=== PATIENT | female | born 1980 | race Caucasian/White ===

== ENCOUNTER → 2024-09-25 13:09 | Outpatient (BNVA) | payer OTHER, SELFPAY | PROVIDERS: Visit Provider Physician Assistant Medical | DX: M23.8X2 Other internal derangements of left knee (principal); S83.92XA Sprain of unspecified site of left knee, initial encounter; S39.011A Strain of muscle, fascia and tendon of abdomen, initial encounter; S39.012A Strain of muscle, fascia and tendon of lower back, initial encounter; X50.1XXA Overexertion from prolonged static or awkward postures, initial encounter | CPT/HCPCS: 73502; 73564; 99204 ==

== ENCOUNTER → 2024-09-28 13:30 | Outpatient (BNVA) | payer OTHER, SELFPAY | PROVIDERS: Visit Provider Physician Assistant Medical | DX: M23.92 Unspecified internal derangement of left knee (principal); S39.011A Strain of muscle, fascia and tendon of abdomen, initial encounter; S39.012A Strain of muscle, fascia and tendon of lower back, initial encounter; X50.1XXA Overexertion from prolonged static or awkward postures, initial encounter; M54.16 Radiculopathy, lumbar region | CPT/HCPCS: 99213 ==

== ENCOUNTER → 2024-10-03 14:18 | Outpatient (BNVA) | payer OTHER, SELFPAY | PROVIDERS: Visit Provider Physician Assistant Medical | DX: M23.8X2 Other internal derangements of left knee (principal); S39.011D Strain of muscle, fascia and tendon of abdomen, subsequent encounter; S39.012D Strain of muscle, fascia and tendon of lower back, subsequent encounter; X50.1XXD Overexertion from prolonged static or awkward postures, subsequent encounter; M54.16 Radiculopathy, lumbar region | CPT/HCPCS: 74176; 99214 ==

== ENCOUNTER → 2024-10-10 14:17 | Outpatient (BNVA) | payer OTHER, SELFPAY | PROVIDERS: Visit Provider Physician Assistant Medical | DX: M23.8X2 Other internal derangements of left knee (principal); S39.011D Strain of muscle, fascia and tendon of abdomen, subsequent encounter; S39.012D Strain of muscle, fascia and tendon of lower back, subsequent encounter; X50.1XXD Overexertion from prolonged static or awkward postures, subsequent encounter; M54.16 Radiculopathy, lumbar region; N83.202 Unspecified ovarian cyst, left side | CPT/HCPCS: 99213 ==

== ENCOUNTER → 2024-10-20 14:06 | Outpatient (BNVA) | payer OTHER, SELFPAY | PROVIDERS: Visit Provider Physician Assistant Medical | DX: M23.92 Unspecified internal derangement of left knee (principal); S39.011D Strain of muscle, fascia and tendon of abdomen, subsequent encounter; S39.012D Strain of muscle, fascia and tendon of lower back, subsequent encounter; X50.1XXD Overexertion from prolonged static or awkward postures, subsequent encounter; M54.16 Radiculopathy, lumbar region | CPT/HCPCS: 99213 ==

== ENCOUNTER 2024-11-09 14:25 | Outpatient (RCR) | payer OTHER, SELFPAY ==
--- NOTE | 2024-10-09 12:50 | MHC.PT.EP ---
[facility] [place] [facility] [place] Office [place] Office [address] Fabian Evangelista [address] [phone] F: [phone] F: [phone] F: [phone] F: [phone] Physical Therapy Plan of Care Date of Evaluation: 10/09/24 Date of Surgery: Diagnosis: LEFT GROIN AND LT KNEE STRAIN, LUMBAR STRAIN/RADICULOPATHY Assessment: 44 YO FEMALE REF TO PT WITH H/O 09/25/24 AT WORK, BENDING-> STANDING UP AND TURNING W ONSET OF Lt LBP/ HIP/ GROIN AND Lt KNEE SORENESS.. SHE HAS BEEN OOW SINCE. 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 FUNCTIONALLY, THE Pt NOTES DECR MARCIA TO BENDING, SQUATTING, SLEEPING, AND STANDING- SHE HAS SELF LIMITED HER ADLs. THE Pt WOULD BENEFIT FROM PT TO ADDRESS THE ABOVE FINDINGS AND GUIDE HER IN HER ULTIMATE GOAL OF RTW. Frequency and Duration: The patient will be seen 2 x WK x 4 WKS Short Term Goals: DECR Lt LS/HIP PAIN TO 2-3/10 INITIATE HEP IMPROVE FUNCTIONAL SQUAT MECH TO DECR LB STRESS WNL TRUNK AROM Usp Goals: Pt INDEP W HEP AND SELF SX MGMT TECHN Pt IMPROVE ADL MARCIA, SLEEP-> IMPROVED LEFI (AT EVAL 60/80) AND OSWESTRY (, AT EVAL) Pt DEMON APPROP BODY MECH W 3:3 SIMUL ADLs/ WORK TASKS Treatment Plan: Modalities to reduce pain, spasms and effusion. Manual therapy to restore motion and function. Therapeutic exercise to improve strength and flexibility. Neuromuscular re-education for posture and balance. Therapeutic activities to return to functional activities of daily living. Electronically signed by: EVAN MARTINEZ,PT Please sign and return to therapist. Thank you for your referral.
--- NOTE | 2024-11-09 14:57 | MHC.PT.DC ---
[facility] [place] Office [place] Office [place] Office [address] Fabian Evangelista [address] [phone] F: [phone] F: [phone] F: [phone] F: [phone] Physical Therapy Discharge Report Diagnosis: LEFT GROIN AND LT KNEE STRAIN, LUMBAR STRAIN/RADICULOPATHY Date of Surgery: Date of Evaluation: 10/09/24 Date of Discharge: 11/09/24 Treatments to Date: 5 Cancellations to Date: 1 No Shows to Date: 2 Discharge Status: Achieved Goals Improved Function Independent with HEP Discharge Summary: VLADISLAV HAS PROGRESSED NICELY IN PT -> SHE HAS MET HER PT GOALS AT THIS TIME AND IS MOTIVATED W HER HEP AND SX MGMT, SHE HAS WFL AROM, DEMON APPROP BODY MECH W SIMUL WORK/ ADLs.. HER PAIN HAS RELATIVELY RESOLVED. HER OSWESTRY SCORE AT DISCHARGE IS 5/50 AND WAS 16/50 EVAL . Electronically signed by: EVAN MARTINEZ,PT Please sign and return to therapist. Thank you for your referral.
== END 2024-11-09 14:57 | disposition home or self-care (01) ==
LOC: HO.PT 14:25
PROVIDERS: Visit Provider Physician Assistant Medical
DX: S39.011D Strain of muscle, fascia and tendon of abdomen, subsequent encounter (principal); S83.92XD Sprain of unspecified site of left knee, subsequent encounter; S39.012D Strain of muscle, fascia and tendon of lower back, subsequent encounter; X50.1XXD Overexertion from prolonged static or awkward postures, subsequent encounter
CPT/HCPCS: 97110; 97140; 97162; 97530

== ENCOUNTER → 2024-11-16 12:18 | Outpatient (BNVA) | payer OTHER, SELFPAY | PROVIDERS: Visit Provider Physician Assistant Medical | DX: M23.92 Unspecified internal derangement of left knee (principal); S39.012D Strain of muscle, fascia and tendon of lower back, subsequent encounter; S39.011D Strain of muscle, fascia and tendon of abdomen, subsequent encounter; X50.1XXD Overexertion from prolonged static or awkward postures, subsequent encounter; Z02.79 Encounter for issue of other medical certificate | CPT/HCPCS: 99213 ==

== ENCOUNTER 2025-02-16 23:56 | Emergency (ER) | payer MEDICAID, SELFPAY ==
--- OUTSIDE RECORDS SUMMARY | 2024-12-01 09:48 | XMS_ITS | Continuity of Care Document ---
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 Name Role Phone Alek Hagen MD Unavailable Unavailable Allergies, Adverse Reactions, Alerts Substance Reaction Status Criticality No Known Allergies Active No Inform ation Medications Medication Instructions Dosage Effective Dates (start - stop) Status Comments estradiol 0.01% (0.1 mg/gram) vaginal cream insert (1G) by vaginal route qhs x 2 weeks then twice weekly - Active ibuprofen 800 mg tablet take 1 tablet by oral route 3 times every day with food as needed for menstrual pain - Active metronidazole 500 mg tablet take 1 tablet by oral route 2 times every day for 7 days - No Longer Active Procedures Procedure Date OFFICE/OUTPT Visit, Brent Davenport, 30 - 39 Minutes PH- Body Fluid Acidity Wet Prep OFFICE/OUTPT Visit, Brent Davenport, 30 - 39 Minutes OFFICE/OUTPT Visit - Brent Garcia Davenport DM, 20 - 29 Minutes US Non-OB, EXAM, PELVIC, COMPLETE URINALYSIS NONAUTO W/O SCOPE PH- Body Fluid Acidity Wet Prep OFFICE/OUTPT Visit - Brent Davenport DM, 20 - 29 Minutes URINALYSIS NONAUTO W/O SCOPE PREV VISIT, EST, AGE 18-39 US Non-OB, EXAM, PELVIC, COMPLETE OFFICE/OUTPT Visit - Established - Low M DM, 20 - 29 Minutes URINALYSIS NONAUTO W/O SCOPE Psychotherapy, 45 Minutes With Patient J Phone Psychotherapy, 30 Minutes With Pat jonahnt Psychotherapy, 45 Minutes With Patient M Psych Dx Eval Psychotherapy, 30 Minutes With Patient A OFFICE/OUTPT Visit - Established - Low M DM, 20 - 29 Minutes OFFICE/OUTPT Visit - Established - Low M DM, 20 - 29 Minutes PREV VISIT, EST, AGE 40-64 OFFICE/OUTPATIENT VISIT, EST URINALYSIS NONAUTO W/O SCOPE PH- Body Fluid Acidity Wet Prep OFFICE/OUTPATIENT VISIT, EST POSTOP FOLLOW-UP VISIT Hysterectomy - Total, W Surgical Laparos copy, Uterus < = 250g OFFICE/OUTPATIENT VISIT, EST OFFICE/OUTPATIENT VISIT, EST URINE TEST, BY VISUAL [facility]PARISON BIOPSY OF UTERUS LINING FINALIZED WITH NO OV OFFICE/OUTPATIENT VISIT, EST US Non-OB, EXAM, PELVIC, COMPLETE URINALYSIS NONAUTO W/O SCOPE OFFICE/OUTPATIENT VISIT, EST OFFICE/OUTPATIENT VISIT, EST OFFICE/OUTPATIENT VISIT, EST OFFICE/OUTPATIENT VISIT, EST Psychotherapy, 30 Minutes With Patient M URINALYSIS NONAUTO W/O SCOPE URINE TEST, BY V[facility]PARISON OFFICE/OUTPATIENT VISIT, EST PREV VISIT, EST, AGE 18-39 CYTOPATH C/V THIN LAYER URINALYSIS NONAUTO W/O SCOPE URINE TEST, BY V[facility]PARISON OFFICE/OUTPATIENT VISIT, EST PH- Body Fluid Acidity Wet Prep VAGINAL CHANDRAKANT OFFICE/OUTPATIENT VISIT, EST INFLUENZA ASSAY W/OPTIC OFFICE/OUTPATIENT VISIT, EST URINALYSIS NONAUTO W/O SCOPE OFFICE/OUTPATIENT VISIT, EST THER/PROPH/DIAG INJ, SC/IM Wet Prep PH- Body Fluid Acidity VAGINAL CHANDRAKANT PREV VISIT, EST, AGE 18-39 THER/PROPH/DIAG INJ, SC/IM OFFICE/OUTPATIENT VISIT, EST Advance Directives Directive Yes / No Effective Date File Name No Information Encounters Encounter Description Practice Location Reason(s) For Visit Diagnoses Date Provider Providers Copied on Encounter [facility], [address] [place] [address], [facility], tel:[phone] [facility] Adult Medicine No Information 5 Xiao Gaston. 500 [facility]., [id number] [address] [place] [address], [address], [place]. tel:[phone] OFFICE/OUTPT Visit, Established - Mod MDM, 30 - 39 Minutes [facility], [address] [place] [address], [facility], tel:[phone] [facility] Adult Medicine Posthospital office visit (chief complaint) Body mass index (BMI) 26.0-26.9, adultAcute colitisPostch olecystectomy syndromeAbdom inal bruit 5 Xiao Gaston. [address] [facility] [id number] [address] [place] [address], [address], [place]. tel:[phone] OFFICE/OUTPT Visit, Established - Mod MDM, 30 - 39 Minutes [facility], [address] [place] [address], [facility], [place] tel:[phone] [facility] Ovarian Cyst. (chief complaint)Vag inal discharge. (chief complaint) Vaginal dischargeAt risk for sexually transmitted disease due to unprotected sexLeft ovarian cyst 5 Abelino Johnson. [address], [id number] [address] [place] [address], [address], [place]. tel:[phone] OFFICE/OUTPT Visit - Established - Low MDM, 20 - 29 Minutes [facility], [address] [place] [address], [facility], [place] tel:[phone] [facility] Urinary incontinence. (chief complaint) Urinary incontinence in femaleEncount er to discuss test results 3 Abelino Johnson. [address], [id number] [address] [place] [address], [address], [place]. tel:[phone] [facility], [address] [place] [address], [place], [place], [facility], [place] tel:[phone] [facility] pelvic pain (chief complaint) Pelvic pain in female 3 Vicenta Larson. [address], [id number] [address] [place] [address], [address], [place]. tel:[phone] OFFICE/OUTPT Visit - Established - Low MDM, 20 - 29 Minutes [facility], [address] [place] [address], [facility], [place] tel:[phone] [facility] Pelvic pain. (chief complaint) Pelvic pain in femaleHx of hysterectomyE ncounter for screening, unspecifiedOt her specified noninflammato ry disorders of vagina 3 Abelino Johnson. [address], [id number] [address] [place] [address], [address], [place]. tel:[phone] PREV VISIT, EST, AGE 18-39 [facility], [address] [place] [address], [facility], [place] tel:[phone] [facility] Annual Exam (chief complaint) Body mass index (BMI) 29.0-29.9, adultEncounte r for screening, unspecifiedBr east cancer screening by mammogramWome n's annual routine gynecological examinationUr inary symptom or sign 2 Abelino Johnson. [address], [id number] [address] [place] [address], [address], [place]. tel: [phone] [facility], [address] [place] [address], [facility], [place] tel:[phone] [facility] pelvic pain s/p hysterectomy (chief complaint) Pelvic pain in female 1 Vicenta Vizcarrathia. [address], [id number] [address] [place] [address], [facility], [place]. tel: [phone] OFFICE/OUTPT Visit - Established - Low MDM, 20 - 29 Minutes [facility], [address] [place] [address], [facility], [place] tel:[phone] [facility] pelvic pain (chief complaint) Pelvic pain in femaleMixed incontinenceE ncounter for screening, unspecified 1 Neville Salgadoa. [address], [id number] [address] [place] [address], [facility], [place]. tel: [phone] Psychotherap y, 45 Minutes With Patient [facility], [address] [place] [address], [facility], [place] tel:[phone] [facility] Behavioral Health Adjustment disorder with mixed anxiety and depressed moodCannabis use, unspecified, uncomplicated 1 August Tavera. [address] [id number] [address] [place] [address], [address], [place]. tel: [phone] [facility], [address] [place] [address], [facility], [place] tel:[phone] [facility] Behavioral Health Adjustment disorder with mixed anxiety and depressed moodCannabis use, unspecified, uncomplicated 1 August Tavera. [address] [id number] [address] [place] [address], [address], [place]. tel:[phone] Psychotherap y, 45 Minutes With Patient [facility], [address] [place] [address], [address], [place] tel:[phone] [facility] Behavioral Health Adjustment disorder with mixed anxiety and depressed moodCannabis use, unspecified, uncomplicated 1 August Tavera. 500 [facility]., [id number] [address] [place] [address], [address], [place]. tel:[phone] Psych Dx Eval [facility], [address] [place] [address], [facility], [place] tel:[phone] [facility] Behavioral Health Initial Assessment (chief complaint) Adjustment disorder with mixed anxiety and depressed moodCannabis use 1 August Tavera. 500 [facility]., [id number] [address] [place] [address], [address], [place]. tel:[phone] Psychotherap y, 30 Minutes With Patient [facility], [address] [place] [address], [facility], [place] tel:[phone] [facility] Behavioral Health Adjustment disorder with mixed anxiety and depressed mood 1 No Information OFFICE/OUTPT Visit - Established - Low MDM, 20 - 29 Minutes [facility], [address] [place] [address], [facility], [place] tel:[phone] [facility] Adult Medicine Anxiety (chief complaint) Body mass index (BMI) 28.0-28.9, adultAnxiety 1 No Information OFFICE/OUTPT Visit - Established - Low MDM, 20 - 29 Minutes [facility], [address] [place] [address], [facility], [place] tel:[phone] [facility] Adult Medicine Establish care (chief complaint) Routine physical examinationAn xiety 1 No Information PREV VISIT, EST, AGE 40-64 [facility], [address] [place] [address], [facility], [place] tel:[phone] [facility] Annual Exam (chief complaint) Left breast lumpBreast cancer screening by mammogramHist ory of right breast biopsyEncntr for music arranger exam (general) (routine) w/o abn findings 0 Abelino Johnson. 500 [facility], [id number] [address] [place] [address], [address], [place]. tel:[phone] OFFICE/OUTPA TIENT VISIT, [facility], [address] [place] [address], [address], [place] tel:[phone] [facility] vaginal discharge. (chief complaint) Vaginal discharge 0 Abelino Johnson. 500 [facility], [id number] [address] [place] [address], [address], [place]. tel: [phone] OFFICE/OUTPA TIENT VISIT, [facility], [address] [place] [address], [address], [place] tel:[phone] [facility] Pain with urination. (chief complaint)vag inal discharge. (chief complaint) Encounter for screening, unspecifiedVa ginal dischargePost operative examination 0 Abelino Johnson. [address] [place] [address], [id number] [address] [place] [address], [address], [place]. tel: [phone] [place] [address], [address] [place] [address], [address], [place] tel:[phone] [facility] AUB, Pelvic Pain, Post-op (chief complaint) Postoperative examinationAb normal uterine bleeding (AUB)Pelvic pain in female 0 Vicenta Marsha. [address] [place] [address], [id number] [address] [place] [address], [address], [place]. tel: [phone] [place] [address], [address] [place] [address], [address], [place] tel:[phone] [facility] TL, BS (chief complaint) Abnormal uterine bleeding (AUB)Dysmenor rheaPelvic pain in femaleExcessi ve and frequent menstruation with irregular cycleIntramur al leiomyoma of uterus 0 Vicenta Marsha. [address] [place] [address], [id number] [address] [place] [address], [address], [place]. tel:[phone] OFFICE/OUTPA TIENT VISIT, [facility], [address] [place] [address], [address], [place] tel:[phone] [facility] Pelvic Pain/Dysmenor alexander (chief complaint) Abnormal uterine bleeding (AUB)Pelvic pain in femaleDysmeno rrhea 0 Vicenta Marsha. 500 [facility], [id number] [address] [place] [address], [address], [place]. tel:[phone] [facility], [address] [place] [address], [address], [place] tel:[phone] [facility] Pre-op (chief complaint) Pelvic pain in femaleDysmeno rrheaAbnormal uterine bleeding (AUB) 0 Vicenta Marsha. 500 [facility], [id number] [place], [address], [place]. tel:[phone] OFFICE/OUTPA TIENT VISIT, [facility], [address] [place] [address], [address], [place] tel:[phone] [facility] Pelvic Pain/Dysmenor alexander (chief complaint) DysmenorrheaP elvic pain in female 9 Vicenta Marsha. [address] [place] [address], [id number] [address] [place] [address], [address], [place]. tel:[phone] [facility], [address] [place] [address], [address], [place] tel:[phone] [facility] Endo biopsy (chief complaint) Pelvic pain in femaleDysmeno rrheaEncounte r for test, result negative 9 No Information OFFICE/OUTPA TIENT VISIT, [facility], [address] [place] [address], [address], [place] tel:[phone] [facility] Results (chief complaint) Pelvic pain in femaleBody mass index (BMI) 30.0-30.9, adult 9 No Information [facility], [address] [place] [address], [address], [place] tel:[phone] [facility] Lower Abdominal Pain (chief complaint) Pelvic pain in female 9 Vicenta Marsha. 500 [facility], [id number] [address] [place] [address], [address], [place]. tel:[phone] OFFICE/OUTPA TIENT VISIT, [facility], [address] [place] [address], [address], [place] tel:[phone] [facility] pelvic pain (chief complaint) Encounter for screening, unspecifiedPe lvic pain in femaleScreeni ng examination for venereal disease 9 No Information OFFICE/OUTPA TIENT VISIT, [facility], [address] [place] [address], [address], [place] tel:[phone] [facility] Pelvic Pain, Dysmenorrhea, ?Endometriosi s (chief complaint) DysmenorrheaM enorrhagia with irregular cycleAbnormal uterine bleeding (AUB)Intramur al leiomyoma of uterus 8 Vicenta Larson. [address] [place] [address], [id number] [address] [place] [address], [address], [place]. tel:[phone] OFFICE/OUTPA TIENT VISIT, [facility], [address] [place] [address], [facility], [place] tel:[phone] [facility] Endometriosis pain (chief complaint) Endometriosis , unspecified 8 No Information OFFICE/OUTPA TIENT VISIT, [facility], [address] [place] [address], [facility], [place] tel:[phone] [facility] Adult Medicine Headache, fatigue (chief complaint) Body mass index (BMI) 29.0-29.9, adultRoutine physical examinationCh ronic tension-type headache, not intractable 7 No Information Psychotherap y, 30 Minutes With Patient [facility], [address] [place] [address], [facility], [place] tel:[phone] [facility] Behavioral Health Depression 7 No Information OFFICE/OUTPA TIENT VISIT, [facility], [address] [place] [address], [facility], [place] tel:[phone] [facility] Adult Medicine Follow Up of ER (chief complaint)Low er back pain (chief complaint) Back painDepressio n 7 No Information PREV VISIT, [facility], AGE 18-39 [facility], [address] [place] [address], [facility], [place] tel:[phone] [facility] Annual Exam (chief complaint) Encounter for gynecological examination with abnormal findingScreen ing examination for venereal diseaseSubser ous leiomyoma of uterusPersona l history of urinary disorderBreas t mass 7 No Information OFFICE/OUTPA TIENT VISIT, [facility], [address] [place] [address], [facility], [place] tel:[phone] [facility] Vaginal odor (chief complaint)Vag inal discharge/itc shruti (chief complaint) Body mass index (BMI) 29.0-29.9, adultEncounte r for screening, unspecifiedEn counter for test, result negativeBV (bacterial vaginosis)Oth er specified bacterial agents as the cause of diseases classified elsewhereAcut e cystitis without hematuria 7 No Information OFFICE/OUTPA TIENT VISIT, [facility], [address] [place] [address], [facility], [place] tel:[phone] [facility] vaginal discharge (chief complaint) SCREEN FOR VENERAL DISVaginitisG YNECOLOGICAL EXAMINATION - ROUTINE 4 No Information OFFICE/OUTPA TIENT VISIT, [facility], [address] [place] [address], [address], [place] tel:[phone] [facility] Adult Medicine Cold symptoms (chief complaint) Dietary surveillance and counselingCol dInfluenza with other respiratory manifestation sAcute bronchitis 4 No Information OFFICE/OUTPA TIENT VISIT, [facility], [address] [place] [address], [address], [place] tel:[phone] [facility] Follow Up of (chief complaint) Endometriosis , site unspecifiedDe pressionDysur ia 4 No Information PREV VISIT, [facility], AGE 18-39 [facility], [address] [place] [address], [address], [place] tel:[phone] [facility] Annual Exam (chief complaint)Matilde ual Exam (chief complaint) Gynecological ExaminationSc reening examination for venereal diseaseEndome triosis of pelvic peritoneum 4 No Information OFFICE/OUTPA TIENT VISIT, EST [facility], [address] [place], [address], tel:[phone] [facility] vaginal odor (chief complaint) VaginitisScre ening examination for venereal disease 4 No Information [facility], [place], [address], tel:[phone] Conversion OTHER AND UNSPECIFIED OVARIAN CYST 1 No Information [facility], [address] [place], [address], [place] tel:[phone] Conversion CANDIDIASIS OF VULVA AND VAGINAPREGNAN CY TEST - NEGATIVE RESULTPELVIC PAIN 1 No Information [facility], [address] [place], [place], [facility], tel:[phone] Conversion PE W/ PAPSTD SCREENTubal Ligation 1 No Information Family History Family Member Type Diagnosis Age At Onset Maternal grandfather Problem (finding) cancer of the esophagus (Cause Of ) Father Problem (finding) hypertension Mother Problem (finding) hypertension Mother Problem (finding) Mental illness Father Problem (finding) diabetes melli tus in first degree relative Sister Problem (finding) Oral Mother Problem (finding) diabetes melli tus in first degree relative Mother Problem (finding) malignant neoplasm of p harynx Father Problem (finding) raised blood lipids Mother Problem (finding) Thyroid disease Maternal aunt Problem (finding) Ovarian cancer Payers Payer name Insurance type Covered libertarian ID Authorsommer jim(s) CAS Mcmahan [id number] Social History Type Description Quantity Date Captured Comments Alcohol Use Details Unknown Caffeine Use Details Unknown Tobacco Use Status No Information Smoking Status No Information Sex Female Sexual Orientation Straight or heterosexual Gender Identity Female Chief Complaint And Reason For Visit No Information Reason For Referral Reason For Referral No Information Plan Of Treatment Date Type Action Status Goal Mammogram. Due on due Goal Eye exam. Due on due Goal Tdap. Due on due Goal Diabetes screening. Due on A due Goal Unhealthy drug u se screening. Due on due Goal HPV. Due on due Goal Influenza vaccine. Due on due Goal Dental exam. Due on due Goal Colonoscopy. Due on due Goal FIT. Due on due Goal FIT-DNA. Due on due Goal Hepatitis C scre ening. Due on due Goal Td vaccine. Due on due Goal Depression scree susan. Due on due Goal Hepatitis C scre ening. Due on due Goal Influenza vaccine. Due on due Goal HPV. Due on due Goal Depression scree susan. Due on due Goal Eye exam. Due on due Goal Tdap. Due on due Goal Unhealthy drug u se screening. Due on due Goal Diabetes screening. Due on A due Goal Pap/HPV testing. Due on due Goal Td vaccine. Due on due Goal Dental exam. Due on due Goal Mammogram. Due on due Goal Dietary manageme nt education, guidance, and counseling completed Goal HPV. Due on due Goal Tdap. Due on due Goal Depression scree susan. Due on due Goal Td vaccine. Due on due Goal Pap/HPV testing. Due on due Goal Mammogram. Due on due Goal Diabetes screening. Due on due Goal Influenza vaccine. Due on due Goal Hepatitis C scre ening. Due on due Goal Unhealthy drug u se screening. Due on due Goal Dental exam. Due on 025 due Goal Eye exam. Due on due Goal Dental exam. Due on 023 due Goal HPV. Due on due Goal Depression scree susan. Due on due Goal Influenza vaccine. Due on due Goal Diabetes screening. Due on due Goal Eye exam. Due on due Goal Td vaccine. Due on due Goal Tdap. Due on due Goal Mammogram. Due on due Goal Pap/HPV testing. Due on due Goal Diabetes screening. Due on due Goal Mammogram. Due on due Goal HPV. Due on due Goal Tdap. Due on due Goal Eye exam. Due on due Goal Td vaccine. Due on due Goal Pap/HPV testing. Due on due Goal Depression scree susan. Due on due Goal Dental exam. Due on due Goal Influenza vaccine. Due on due Goal Depression scree susan. Due on due Goal Mammogram. Due on due Goal Dental exam. Due on due Goal Diabetes screening. Due on due Goal HPV. Due on due Goal Tdap. Due on due Goal Influenza vaccine. Due on due Goal Td vaccine. Due on due Goal Eye exam. Due on due Goal Pap/HPV testing. Due on due Goal Depression scree susan. Due on due Goal Mammogram. Due on due Goal Influenza vaccine. Due on due Goal Eye exam. Due on due Goal Td vaccine. Due on due Goal Dental exam. Due on due Goal Tdap. Due on due Goal Pap/HPV testing. Due on due Goal Diabetes screening. Due on due Goal HPV. Due on due Goal Lifestyle education regardin g diet completed Goal Eye exam. Due on due Goal Td vaccine. Due on due Goal Diabetes screening. Due on A due Goal Depression scree susan. Due on due Goal Mammogram. Due on due Goal Pap/HPV testing. Due on due Goal Dental exam. Due on due Goal Tdap. Due on due Goal Influenza vaccine. Due on due Goal Influenza vaccine. Due on due Goal Diabetes screening. Due on A due Goal Depression scree susan. Due on due Goal Mammogram. Due on due Goal Pap/HPV testing. Due on due Goal Eye exam. Due on due Goal Td vaccine. Due on due Goal Dental exam. Due on due Goal Tdap. Due on due Goal Diabetes screening. Due on A due Goal Depression scree susan. Due on due Goal Mammogram. Due on due Goal Pap/HPV testing. Due on due Goal Eye exam. Due on due Goal Td vaccine. Due on due Goal Dental exam. Due on due Goal Tdap. Due on due Goal Influenza vaccine. Due on Ap due Goal Tdap. Due on due Goal Influenza vaccine. Due on Ap due Goal Diabetes screening. Due on A due Goal Depression scree susan. Due on due Goal Mammogram. Due on due Goal Pap/HPV testing. Due on due Goal Eye exam. Due on due Goal Td vaccine. Due on due Goal Dental exam. Due on due Goal Tdap. Due on due Goal Dental exam. Due on due Goal Influenza vaccine. Due on due Goal Diabetes screening. Due on A due Goal Depression scree susan. Due on due Goal Mammogram. Due on due Goal Pap/HPV testing. Due on due Goal Eye exam. Due on due Goal Td vaccine. Due on due Goal Dietary manageme nt education, guidance, and counseling completed Goal Dental exam. Due on due Goal Tdap. Due on due Goal Influenza vaccine. Due on Nj due Goal Diabetes screening. Due on due Goal Depression scree susan. Due on due Goal Mammogram. Due on due Goal Pap/HPV testing. Due on due Goal Eye exam. Due on due Goal Td vaccine. Due on due Goal Tobacco cessation counseling completed Goal Dental exam. Due on due Goal Tdap. Due on due Goal Influenza vaccine. Due on due Goal Diabetes screening. Due on A due Goal Depression scree susan. Due on due Goal Mammogram. Due on 0 due Goal Pap/HPV testing. Due on due Goal Eye exam. Due on due Goal Td vaccine. Due on due Goal Dental exam. Due on due Goal Tdap. Due on due Goal Influenza vaccine. Due on due Goal Diabetes screening. Due on due Goal Depression scree susan. Due on due Goal Mammogram. Due on 0 due Goal Pap/HPV testing. Due on due Goal Eye exam. Due on due Goal Td vaccine. Due on due Goal Pap/HPV testing. Due on due Goal Eye exam. Due on due Goal Td vaccine. Due on due Goal Diabetes screening. Due on due Goal Depression scree susan. Due on due Goal Mammogram. Due on 0 due Goal Dental exam. Due on due Goal Tdap. Due on due Goal Influenza vaccine. Due on due Goal Diabetes screening. Due on due Goal Depression scree susan. Due on due Goal Mammogram. Due on 0 due Goal Pap/HPV testing. Due on due Goal Eye exam. Due on due Goal Td vaccine. Due on due Goal Dental exam. Due on due Goal Tdap. Due on due Goal Influenza vaccine. Due on due Goal Dental exam. Due on due Goal Tdap. Due on due Goal Influenza vaccine. Due on due Goal Diabetes screening. Due on due Goal Depression scree susan. Due on due Goal Mammogram. Due on 0 due Goal Pap/HPV testing. Due on due Goal Eye exam. Due on due Goal Td vaccine. Due on due Goal Influenza vaccine. Due on due Goal Tdap. Due on due Goal Dental exam. Due on due Goal Mammogram. Due on 0 due Goal Diabetes screening. Due on due Goal Depression scree susan. Due on due Goal Pap/HPV testing. Due on due Goal Eye exam. Due on due Goal Td vaccine. Due on due Goal Diabetes screening. Due on due Goal Influenza vaccine. Due on due Goal Tdap. Due on due Goal Dental exam. Due on due Goal Mammogram. Due on 0 due Goal Depression scree susan. Due on due Goal Pap/HPV testing. Due on due Goal Eye exam. Due on due Goal Td vaccine. Due on due Goal Pap/HPV testing. Due on due Goal Eye exam. Due on due Goal Td vaccine. Due on 19 due Goal Diabetes screening. Due on due Goal Influenza vaccine. Due on due Goal Tdap. Due on due Goal Dental exam. Due on 019 due Goal Mammogram. Due on 9 due Goal Depression scree susan. Due on due Goal Dental exam. Due on due Goal Tdap. Due on due Goal Influenza vaccine. Due on No due Goal Diabetes screening. Due on N due Goal Td vaccine. Due on due Goal Eye exam. Due on due Goal Pap/HPV testing. Due on due Goal Depression scree susan. Due on due Goal Mammogram. Due on 9 due Goal Depression scree susan. Due on due Goal Mammogram. Due on 9 due Goal Dental exam. Due on due Goal Tdap. Due on due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 likely endometriosis. She has trialed hormonal therapy, lupron and NSAID without relief and therefore will need to proceed w/ EMBx prior to her pre-op consultation. This has been an ongoing concern for > 1.5 years. See prior visits.Ultrasound 01/26/19:Findings: The uterus was retroverted, measured 9.8 x 5.4 x 5.6 cm and the myometrium was homogeneous. The endometrial double layer thickness was thickened, measuring 1.4 cm. The right ovary measured 2.1 x 2.1 x 2.7 cm and the left 2 x 2.9 x 2.5 cm and both appeared within normal limits. There was a small amount of free fluid within the cul de sac.. Notes from visit with me in 10/2017Patient presents today to discuss possibility of surgery for pelvic pain, dysmenorrhea, menorrhagia. Patient states that cycles are incredibly painful, to the point that she has trouble functioning and that it has affected her ability to maintain a job. U/S 09/20/17: Uterus anteverted, measuring 7.88 x 4.5 x 4.92 cm. One small left lateral intramural fibroid measuring 2.34 x 2.06 x 2.15 cm. Normal ovaries bilaterally. Notes from visit with LATIN DANCER on 09/15/[birth year]36 yo female presents to office as a walk in for severe menstrual pain, ongoing for the last 20 years, and progressively getting worse.LMP: 09/14/17Menses is occurring monthly, lasting 6 days in total. Describes bleeding as heavy- Changing pads every 1 hour, soaked, many clots - size of golf. Additionally describes lower abd pain as daily, worse during menses, menstrual pain is 10/10. Taking tylenol without relief. Reports daily pain 5-6/10 outside of menses. She has a known hx of endometriosis - reports it was diagnosed previously in our office, denies to have surgical diagnosis. Pt states she is going to hospital every month during period for uncontrollable pain - given morphine, or 'something else' and then this improves her pain. In the past she has used lupron for 3 months and had no improvement in painWas offered Depo-Provera, Mirena previously but did not trial. History of fibroid - although on review of last usg (2013) no fibroid seen. Pt is working at [employer] - out of work on monthly basis for pain.Pt is tearful at visit today, and states she need surgery to have this pain addressed.POBHx:FTSVD x 4EAB x 1. D&E.GynHx:Menarche: 10 years old. Cycles irregular. Bleeding lasts 6 days. Bleeding ranges from light to very heavy. +Dysmenorrhea.Sexually active presently.Current Contraception: BTLContraceptive Hx: Depo-Provera.No h/o STDs.?H/o cervical dysplasia. Last pap wnl 2017 wnl. Pap 2013 wnl. ?Remote history of colposcopy vs. EMBx (patient cannot recall). Denies having had LEEP. PMHx:NonePSHx:L/S cholecystectomyD&EMeds: NoneAll: NKDASocHx: smokes THC daily. Social ETOH use. Not working currently.FamHx: negative for breast, colon, uterine, ovarian cancer. Pre-op Updated H&P: Radha rt reviewed since time of last visit with patient. No changes noted. Pt is healthy and does not require pre-op clearance to proceed with surgery. 1. Pelvic Pain/Dysmenorrhea Pt presents today to discuss surgery again for chronic pelvic pain, dysmenorrhea. This has been an ongoing issue for her for the last 1.5 years. She desires definitive management at this time. She even tried Lupron but it made her miserable. +Hot flashes, depression. EMBx 02/07/19: benignNotes from office visit with LATIN DANCER on 02/07/19:39 yo female presents to office for resultsIndication: Dysmenorrhea / pelvic painPelvic usg on 01/26/19:Findings: The uterus was retroverted, measured 9.8 x 5.4 x 5.6 cm and the myometrium was homogeneous. The endometrial double layer thickness was thickened, measuring 1.4 cm. The right ovary measured 2.1 x 2.1 x 2.7 cm and the left 2 x 2.9 x 2.5 cm and both appeared within normal limits. There was a small amount of free fluid within the cul de sac.Marsha Yadav MD 01/27/2019 8:24:39 AMNormal scan of the pelvis.Desiring surgical intervention for pain / dysmenorrhea likely endometriosis. She has trialed hormonal therapy, lupron and NSAID without relief and therefore will need to proceed w/ EMBx prior to her pre-op consultation. This has been an ongoing concern for > 1.5 years. See prior visits.Ultrasound 01/26/19:Findings: The uterus was retroverted, measured 9.8 x 5.4 x 5.6 cm and the myometrium was homogeneous. The endometrial double layer thickness was thickened, measuring 1.4 cm. The right ovary measured 2.1 x 2.1 x 2.7 cm and the left 2 x 2.9 x 2.5 cm and both appeared within normal limits. There was a small amount of free fluid within the cul de sac.. Notes from visit with me in 10/2017Patient presents today to discuss possibility of surgery for pelvic pain, dysmenorrhea, menorrhagia. Patient states that cycles are incredibly painful, to the point that she has trouble functioning and that it has affected her ability to maintain a job. U/S 09/20/17: Uterus anteverted, measuring 7.88 x 4.5 x 4.92 cm. One small left lateral intramural fibroid measuring 2.34 x 2.06 x 2.15 cm. Normal ovaries bilaterally. Notes from visit with LATIN DANCER on 09/15/[birth year]36 yo female presents to office as a walk in for severe menstrual pain, ongoing for the last 20 years, and progressively getting worse.LMP: 09/14/17Menses is occurring monthly, lasting 6 days in total. Describes bleeding as heavy- Changing pads every 1 hour, soaked, many clots - size of golf. Additionally describes lower abd pain as daily, worse during menses, menstrual pain is 10/10. Taking tylenol without relief. Reports daily pain 5-6/10 outside of menses. She has a known hx of endometriosis - reports it was diagnosed previously in our office, denies to have surgical diagnosis. Pt states she is going to hospital every month during period for uncontrollable pain - given morphine, or 'something else' and then this improves her pain. In the past she has used lupron for 3 months and had no improvement in painWas offered Depo-Provera, Mirena previously but did not trial. History of fibroid - although on review of last usg (2013) no fibroid seen. Pt is working at [employer] - out of work on monthly basis for pain.Pt is tearful at visit today, and states she need surgery to have this pain addressed.POBHx:FTSVD x 4EAB x 1. D&E.GynHx:Menarche: 10 years old. Cycles irregular. Bleeding lasts 6 days. Bleeding ranges from light to very heavy. +Dysmenorrhea.Sexually active presently.Current Contraception: BTLContraceptive Hx: Depo=Provera.No h/o STDs.?H/o cervical dysplasia. Last pap wnl 2017 wnl. Pap 2014 wnl. ?Remote history of colposcopy vs. EMBx (patient cannot recall). Denies having had LEEP. PMHx:NonePSHx:L/S cholecystectomyD&EMeds: NoneAll: NKDASocHx: smokes THC daily. Social ETOH use. Not working currently.FamHx: negative for breast, colon, uterine, ovarian cancer. Pelvic Pain/Dysmenorrhea Pt pres ents today to discuss surgery again for chronic pelvic pain, dysmenorrhea. This has been an ongoing issue for her for the last 1.5 years. She desires definitive management at this time. She even tried Lupron but it made her miserable. +Hot flashes, depression. EMBx 02/07/19: benignNotes from office visit with AVELINA on 02/07/19:39 yo female presents to office for resultsIndication: Dysmenorrhea / pelvic painPelvic usg on 01/26/19:Findings: The uterus was retroverted, measured 9.8 x 5.4 x 5.6 cm and the myometrium was homogeneous. The endometrial double layer thickness was thickened, measuring 1.4 cm. The right ovary measured 2.1 x 2.1 x 2.7 cm and the left 2 x 2.9 x 2.5 cm and both appeared within normal limits. There was a small amount of free fluid within the cul de sac.Marsha Yadav MD 01/27/2019 8:24:39 AMNormal scan of the pelvis.Desiring surgical intervention for pain / dysmenorrhea likely endometriosis. She has trialed hormonal therapy, lupron and NSAID without relief and therefore will need to proceed w/ EMBx prior to her pre-op consultation. This has been an ongoing concern for > 1.5 years. See prior visits.Ultrasound 01/26/19:Findings: The uterus was retroverted, measured 9.8 x 5.4 x 5.6 cm and the myometrium was homogeneous. The endometrial double layer thickness was thickened, measuring 1.4 cm. The right ovary measured 2.1 x 2.1 x 2.7 cm and the left 2 x 2.9 x 2.5 cm and both appeared within normal limits. There was a small amount of free fluid within the cul de sac.. Notes from visit with me in 10/2017Patient presents today to discuss possibility of surgery for pelvic pain, dysmenorrhea, menorrhagia. Patient states that cycles are incredibly painful, to the point that she has trouble functioning and that it has affected her ability to maintain a job. U/S 09/20/17: Uterus anteverted, measuring 7.88 x 4.5 x 4.92 cm. One small left lateral intramural fibroid measuring 2.34 x 2.06 x 2.15 cm. Normal ovaries bilaterally. Notes from visit with AVELINA on 09/15/[birth year]36 yo female presents to office as a walk in for severe menstrual pain, ongoing for the last 20 years, and progressively getting worse.LMP: 09/14/17Menses is occurring monthly, lasting 6 days in total. Describes bleeding as heavy- Changing pads every 1 hour, soaked, many clots - size of golf. Additionally describes lower abd pain as daily, worse during menses, menstrual pain is 10/10. Taking tylenol without relief. Reports daily pain 5-6/10 outside of menses. She has a known hx of endometriosis - reports it was diagnosed previously in our office, denies to have surgical diagnosis. Pt states she is going to hospital every month during period for uncontrollable pain - given morphine, or 'something else' and then this improves her pain. In the past she has used lupron for 3 months and had no improvement in painWas offered Depo-Provera, Mirena previously but did not trial. History of fibroid - although on review of last usg (2013) no fibroid seen. Pt is working at [employer] - out of work on monthly basis for pain.Pt is tearful at visit today, and states she need surgery to have this pain addressed.POBHx:FTSVD x 4EAB x 1. D&E.GynHx:Menarche: 10 years old. Cycles irregular. Bleeding lasts 6 days. Bleeding ranges from light to very heavy. +Dysmenorrhea.Sexually active presently.Current Contraception: BTLContraceptive Hx: Depo=Provera.No h/o STDs.?H/o cervical dysplasia. Last pap wnl 2017 wnl. Pap 2013 wnl. ?Remote history of colposcopy vs. EMBx (patient cannot recall). Denies having had LEEP. PMHx:NonePSHx:L/S cholecystectomyD&EMeds: NoneAll: NKDASocHx: smokes THC daily. Social ETOH use. Not working currently.FamHx: negative for breast, colon, uterine, ovarian cancer. Endo biopsy 39 yo female pre sents to office for endometrial biopsyShe is planning surgical intervention for pelvic pain / dysmenorrhea with Dr Yadav. - Procedure reviewed- Risks including but not limited to infection, perforation discussed. Benefits of obtaining endometrial sample to w/u for pathological cause of bleeding discussed. Side effects were reviewed pain/ cramping, bleeding during and s/p biopsy.- test:- Questions were encouraged, and answered- Consent obtained Results 39 yo female pre sents to office for resultsIndication: Dysmenorrhea / pelvic painPelvic usg on 01/26/19:Findings: The uterus was retroverted, measured 9.8 x 5.4 x 5.6 cm and the myometrium was homogeneous. The endometrial double layer thickness was thickened, measuring 1.4 cm. The right ovary measured 2.1 x 2.1 x 2.7 cm and the left 2 x 2.9 x 2.5 cm and both appeared within normal limits. There was a small amount of free fluid within the cul de sac.Marsha Yadav MD 01/27/2019 8:24:39 AMNormal scan of the pelvis.Desiring surgical intervention for pain / dysmenorrhea likely endometriosis. She has trialed hormonal therapy, lupron and NSAID without relief and therefore will need to proceed w/ EMBx prior to her pre-op consultation. This has been an ongoing concern for > 1.5 years. See prior visits. Lower Abdominal Pain pelvic pain Her symptoms hav e been severe and are worse. Presently, the patient is experiencing pain described as sharp, located in the midline, radiating to the back and legs. This is not the first episode. The symptoms occur gradually. The patient is premenopausal. Last menstrual period was 01/15/2019. Context comments: 1 sexual partner, male partner x 14 years. Relevant factors include tubal ligation. Patient denies frequent urination. The patient has a history of dyspareunia, endometriosis and tubal ligation. The patient does not have a history of ovarian cyst or sexually transmitted infection. Her symptoms are aggravated by intercourse and menses. Her symptoms are associated with constipation, diarrhea, menstrual cramping, nausea and vomiting. She denies any chills, fever, hematuria, melena, syncope, urinary frequency, discharge, itching or odor. Additional information: 39yo for pelvic pain. Hx 4 SVDs. She was counseled last year for surgical intervention for hysterectomy, although did not follow through with plans d/t 'scared' Reports intermittent chest pain, with SOB, dizziness, associated w/ anxiety. Has not sought care for this. Last occurrence 1 week ago. Desires STD check. Pelvic Pain, Dysmeno rrhea, ?Endometriosis Patient presents today to discuss possibility of surgery for pelvic pain, dysmenorrhea, menorrhagia. Patient states that cycles are incredibly painful, to the point that she has trouble functioning and that it has affected her ability to maintain a job. U/S 09/20/17: Uterus anteverted, measuring 7.88 x 4.5 x 4.92 cm. One small left lateral intramural fibroid measuring 2.34 x 2.06 x 2.15 cm. Normal ovaries bilaterally. Notes from visit with LATIN DANCER on 09/15/[birth year]36 yo female presents to office as a walk in for severe menstrual pain, ongoing for the last 20 years, and progressively getting worse.LMP: 09/14/17Menses is occurring monthly, lasting 6 days in total. Describes bleeding as heavy- Changing pads every 1 hour, soaked, many clots - size of golf. Additionally describes lower abd pain as daily, worse during menses, menstrual pain is 10/10. Taking tylenol without relief. Reports daily pain 5-6/10 outside of menses. She has a known hx of endometriosis - reports it was diagnosed previously in our office, denies to have surgical diagnosis. Pt states she is going to hospital every month during period for uncontrollable pain - given morphine, or 'something else' and then this improves her pain. In the past she has used lupron for 3 months and had no improvement in painWas offered Depo-Provera, Mirena previously but did not trial. History of fibroid - although on review of last usg (2013) no fibroid seen. Pt is working at [employer] - out of work on monthly basis for pain.Pt is tearful at visit today, and states she need surgery to have this pain addressed.POBHx:FTSVD x 4EAB x 1. D&E.GynHx:Menarche: 10 years old. Cycles irregular. Bleeding lasts 6 days. Bleeding ranges from light to very heavy. +Dysmenorrhea.Sexually active presently.Current Contraception: BTLContraceptive Hx: Depo=Provera.No h/o STDs.?H/o cervical dysplasia. Last pap wnl 2017 wnl. Pap 2014 wnl. ?Remote history of colposcopy vs. EMBx (patient cannot recall). Denies having had LEEP. PMHx:NonePSHx:L/S cholecystectomyD&EMeds: NoneAll: NKDASocHx: smokes THC daily. Social ETOH use. Not working currently. Endometriosis pain 37 yo fe male presents to office as a walk in for severe menstrual pain, ongoing for the last 20 years, and progressively getting worse.LMP: 09/14/17Menses is occurring monthly, lasting 6 days in total. Describes bleeding as heavy- Changing pads every 1 hour, soaked, many clots - size of golf. Additionally describes lower abd pain as daily, worse during menses, menstrual pain is 10/10. Taking tylenol without relief. Reports daily pain 5-6/10 outside of menses. She has a known hx of endometriosis - reports it was diagnosed previously in our office, denies to have surgical diagnosis. Pt states she is going to hospital every month during period for uncontrollable pain - given morphine, or 'something else' and then this improves her pain. In the past she has used lupron for 3 months and had no improvement in painWas offered Depo-Provera, Mirena previously but did not trial. History of fibroid - although on review of last usg (2013) no fibroid seen. Pt is working at [employer] - out of work on monthly basis for pain.Pt is tearful at visit today, and states she need surgery to have this pain addressed. Headache, fatigue Presents to [facility].C/o headache for several years. Feels like some is squeezing her head. Occurs 2 times per week. Is taking motrin with relief 200mg every 6 hours when needed. Associated ssx include blurry vision in the left eye and numbness in the left side of her face. Went to the eye doctor last year and was given glasses but does not use them consistently.PMH- endometriosismeds- deniesSurgical hx- joanna, tubal ligationFamily hx-father- alive, DM, HLD, schizophrenia, bipolarmother- aliveaunt paternial- ovarian CASmoker- deniesDrinker- occasionallyMarijuana daily 3 Health care maintenance -opto- 2016dental- 2016pap- 2016 normal Follow Up of ER Lower back pain Annual Exam Currently pregna nt: no. : 5. Parity: Term: 4. : 1. Livin. The patient states she uses tubal ligation for control. Her menses is regular with heavy flow with a frequency of every 28 days. Positive for dysmenorrhea and menorrhagia. Details: HGB 15 today. Negative for: breast discharge and breast pain. Positive for: breast lump(s) and breast self exam. She does drink alcohol. Additional information: Pt says she has noted lump in the right breats for some time.. Also menses have been havy x 5-6 days anfd painful (has small fibroid uterue). Takes 2 motrin a day during the menses. Has been depressed over family problems No suicide thoughts. Has cpompleted Rx from 07/03/16 for UTI & BV . Vaginal odor Her symptoms beg an 1 Week ago. Presently the patient is experiencing vaginal itching, vaginal irritation, vaginal odor and vaginal discharge. Color is white. Character is fishy. Last menstrual period was 06/05/2016. patient denies condom use, diabetes mellitus, douching, new partner or recent antibiotics. The patient has a history of bacterial vaginosis and yeast. The patient has no history of chlamydia, gonorrhea, herpes genitalis or trichomoniasis. Her symptoms are not aggravated by lubricants or new soap detergent. Her symptoms are not relieved by anything. She denies fever, dyspareunia, vaginal burning, dysuria, frequent urination, genital lesions, genital rash, genital ulcers, herpes genitalis, itching skin of vaginal/groin or vulvar dystrophy. Additional information: SA with partner of 12 years. Does not use condoms. Hx of tubal ligation. Partner admitted that he cheated on her. Vaginal discharge/itching vaginal discharge Onset: gradual . Severity level is mild. Duration 2 Days. The patient describes it as fishy and palencia. It occurs continuously. Context: LMP: 03/11/2014 and sexually active. Denies aggravating factors. Denies relieving factors. Additional information: Pt with Dx endometriosis was on Lupron with some relief but dced because of side effect PH of BV. Cold symptoms Associated sympt oms include cough. Additional information: Pt with productive cough since Wednesday. Also has myalgias vomiting, diarrhea, fever, chills and decreased appetite Taking Mucinex without relief. Admits to smoking marijuana tid. Follow Up of Ultrasound repor t. Pt did not have it done. Has been upet anddepressed. No suicidal thought. Just sensation that she wants to run away from all her problems. Requests behavioral halth referal. No dignifivant symptoms after first injection of Lupron given for clinical Dx of endometriosis. (Ca 125 was 4). Menses was light (05/20/13) but after the injection it lasted 3 weeks. Annual Exam Currently pregna nt: no. : 5. Parity: Term: 4. : 1. Livin. The patient states she uses tubal ligation for control. Last LMP was 04/24/2013. Additional information: 2 yrs ago Annual Exam 33 year old katie hernadez complains of 1` year hx of progressively worsening dysmennorrhea (cannot get out of bed, dyspareunia, menorraghia, post coital blood spotting. G2, P2 LC 2 in her 20s. Pt says mother and mopther's sister had ca of the ovary in their 20s and underwent hysterectomy and Bit S&[facility] [place] [facility]. No chemo pt says. Sister is under Rx for history similar to the patient's . Wgt steady. Post op cholecystectomy x 1 year; needs to take pepsid q hs. vaginal odor The symptoms beg an 2 days ago. 33 y/o P4 presents today with c/o vaginal odor x 2 days, denies any other s/sxs of infection, +SA with same partner x 7 years not using condoms, denies any hx of stds, + use of soaps in vaginal area. Functional Status Date Functional Assessmen t No Information Instructions Date Instruction Additional Infor stephanie Return in 3 to 4 mon ths for PCP establish meant and reevaluation of abdominal bruit Related to Abdominal bruit Weight monitoring Related to Bod y mass index [BMI] 26.0-26.9, adult Dietary management e ducation, guidance, and counseling Related to Body mass index [BMI] 26.0-26.9, adult [facility] pelvic USN repor t reviewed. Small 2.4 cm eloisa cyst. Precaution's givenIf not improved or worse repeat in 3-4 months. Related to Left ovarian cyst Acute vaginitis:Wet prep consistent with BV and yeast. Negative for trichomonas.E Rx: Metronidazole 500 mg 1 p.o. twice daily x7 days. No alcohol for 8 days to prevent reaction.Discussed the importance of completing treatment as prescribed and not skipping doses to prevent antimicrobial resistanceVaginal yeastE Rx: Diflucan 150 mg 1 p.o. once. May repeat in 3 days if needed.Discussed increasing vitamin D intake.Avoid scented personal hygiene products, douching or washing intravaginally.Encouraged to wear cotton underwear is much as possible.Do not have sex during treatment Related to Vaginal discharge Microscopy consisten t with vaginal yeast infectionERX- Diflucan #2- take 1 PO today. May repeat in 72 hrs if symptoms persist- Avoid scented products: douches, scented feminine hygiene products, deodorant soaps, body washes and body sprays.- Wear white cotton underwear. Avoid dark colored underwear- Discontinue w vaginal douchingo Use a condom during sexual intercourseRTO if symptoms do not improve or worsen. Related to Other specified noninflammatory disorders of vagina w et prep consistent with yeast c ulture sent for vaginitis/STD testing we will call with abnormal resultsReturn to office for pelvic ultrasound. Instructions to patient for full bladder. We will follow-up 2-3 wks after Related to Pelvic pain in female Urinalysis negative w e will send urine for UA with reflex to culture.Will call with abnormal results.Discussed contacting urogynecology to discuss surgical options for mixed urinary incontinence at her convenience.. Related to Urinary symptom or sign Routine annual GYNPa p hx: LAst pap 2016 negativeS/p TLH for fibroids and endometriosis, BS on 05/15/2019. Pathology: benign. Mammogram-04/01/2021 n egative. Mammogram ordered/patient to scheduleEducation:Reviewed rationale for pap smear and screening guidelinesEncouraged adequate calcium intake and weight bearing exercise for bone healthReviewed healthy eating and exercise 30 min daily most days.Reviewed breast self awarenessReviewed importance of regular well women visits.Will notify w/abnormal resultsRTO 1 yr for annual or PRN. Related to Women's annual routine gynecological examination Lifestyle education regarding di et Related to Body mass index [BMI] 29.0-29.9, adult Giving encouragement to exercise Related to Body mass index [BMI] 28.0-28.9, adult Dietary management e ducation, guidance, and counseling Related to Body mass index [BMI] 28.0-28.9, adult CBE-Left breast clus ter of small lumps at 12-1 O'clock, h/o right breast mass-bx- benign pathologyDiagnostic bilateral mammogram with bilateral diagnostic US @ [facility] scheduled 11/24/19 Related to Left breast lump CBE-Left breast clus ter of small lumps at 12-1 O'clock, h/o right breast mass-bx- benign pathologyDiagnostic bilateral mammogram with bilateral diagnostic US @ [facility] scheduled Related to Breast cancer screening by mammogram Routine annual GYNTL H for fibroids and endometriosis- no pap per ASCCP/ACOG guidelinesEducation:Reviewed rationale for pap smear and screening guidelinesEncouraged adequate calcium intake and weight bearing exercise for bone healthReviewed healthy eating and exercise 30 min daily most days.Reviewed breast self awarenessReviewed importance of regular well women visits.Will notify w/abnormal resultsRTO 1 yr for annual or PRN Related to 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 Avoid dark colored underwear Discontinue w vaginal douchingUse a condom during sexual intercourseRTO if symptoms do not improve or worsen Related to Vaginal discharge Lifestyle education regarding di et Related to Body mass index (BMI) 30.0-30.9, adult Options discussed. P t desires definitive surgery. We discussed L/S SHENA, JENNY. Patient may have adenomyosis/endometriosis but has not had diagnostic surgery in the past. She is s/p BTL. State hysterectomy form completed. She will return for EMBx. Will schedule surgery in the interim as she is young and healthy and does not require pre-op clearance. All questions answered. Related to Abnormal uterine bleeding (AUB) Fasting labs.Make op to appt.F/u in 6 months. Related to Routine physical examination Take meds as prescri bed.Avoid taking more pain medication than prescribed. Overuses can cause rebound headaches.Get plent of rest and stay hydrated. Light exercise is recommended.Avoid triggers, such as certains foods (chocolate, wine, etc.), bright lights, stress, loud noises, lack of sleep.Seek medical attention if you have signs of stroke, such as numbness, paraylsis, or weakness especially on one side of your body, visual changes, trouble speaking, confusion, or severe headache that is different than your usual headaches. Related to Chronic tension-type headache, not intractable Weight monitoring Related to Bod y mass index (BMI) 29.0-29.9, adult Dietary management e ducation, guidance, and counseling Related to Body mass index (BMI) 29.0-29.9, adult visit in [place] Related to Back pain right MGM ordered. Related to Br east mass see ros; had evaluat ion and does not want recommende surgery Related to Personal history of urinary disorder stable; HGB 15 gm Related to Sub serous leiomyoma of uterus Fibroid, bladder dys function (see notes) Related to Encounter for gynecological examination with abnormal finding Urine micro indicati ve of infectionUTI:o Instructions for patient - UTI:- Avoid bubble bath/scented products.- Shower, rather than bathe.- Avoid carbonated and caffeinated beverages. - Drink 64 oz. of water/day.- Wipe front to back, or wipe vaginal/anal areas separately.- Urinate after sexRX: Macrobid 100 mg BID x 5 days. RTO if symptoms do not improve or worsenCulture pending Related to Acute cystitis without hematuria Vaginal d/c:o Instru ctions for patient - Vaginal Discharge:Counseling: vaginal d/c- Encouraged pt to increase Vit C/ Vit D intake- Avoid scented products: douches, scented feminine hygiene products, deodorant soaps, body washes and body sprays.- Wear white cotton underwear. Avoid dark colored underwear- Discontinue w vaginal douchingo Use a condom during sexual intercourseRTO if symptoms do not improve or worsenERX: Metronidazole 500 mg BID x 7 days. No alcohol or sex during treatment Related to BV (bacterial vaginosis) Lifestyle education regarding di et Related to Body mass index (BMI) 29.0-29.9, adult take med as ordered; looser cloths; white undies; no coitus x 1 week Related to Vaginitis Dietary management e ducation, guidance, and counseling Related to Dietary surveillance and counseling Giving encouragement to exercise Related to Dietary surveillance and counseling Assessments Type Assessment Date No Information Patient Care Teams Name Effective Dates (start - stop) Status Members No Information
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
--- OUTSIDE RECORDS SUMMARY | 2025-02-15 10:30 | XMS_ITS | Encounter Summary ---
Author Organization [facility] [place] [address] Care Team Providers Care Repairer Handtools Name Role Phone Unavailable Primary Care Provider Unavailabl e Reason for Visit * Reason Comments Nausea Vomiting since this morning I think I have food poisoning Encounter Details Date Type Department Care Team ([facility] st Contact Info) Description 02/15/2025 10:30 AM EST - 02/15/2025 11:22 AM EST [facility] Emergency [address] [place] [address] Discharge Disposition: Home or Self Care Social History Tobacco Use Types Packs/Day Years Used Date Smoking Tobacco: Never Smokeless Tobacco: Never Alcohol Use Standard Drinks/Week Comments Yes 0 (1 standard drink = 0.6 oz pur e alcohol) Food Risk Answer Date Recorded Within the past 12 months we worried whether our food would run out before we got money to buy more. Not asked 11/14/2024 Within the past 12 months th e food we bought just didn't last and we didn't have money to get more. Not asked 11/14/2024 Interpersonal Safety Answer Date Record ed Physical Abuse Unrecognized value 11/12/2024 Verbal Abuse Unrecognized value 11/12/2024 Comments No Sex and Gender Information Value Date Recorded Sex Assigned at Female 10/21/2024 8:37 PM EDT Legal Sex Female 12:25 PM EST Gender Identity Female 10/21/2024 8:37 PM EDT Sexual Orientation Choose not to disclose 2024 8:37 PM EDT documented as of this encounter Medications at Time of Discharge sucralfate (CARAFATE) 1 gram tablet Take 1 tablet (1 g total) by mouth 4 (four) times a day (before meals and nightly). 120 each 11 11/14/2024 11/14/2025 documented as of this encounter Discharge Disposition Disposition Code Departure Means Destination Home or Self Care documented in this encounter Plan of Treatment Not on file documented as of this encounter Visit Diagnoses Not on filedocumented in this encounter Additional Health Concerns Infection Onset Date Last Indicated Resolved Time Salmonella 11/12/2024 11/12/2024 documented as of this encounter
[2025-02-17 00:13] VITALS: BP 121/66; PULSE 64; RESP 20; TEMP 36.3; O2SAT 100; BMI 26.6
--- NOTE | 2025-02-17 00:30 | ED.GENADULT ---
HPI - General Adult General Chief complaint: Abdominal Pain Stated complaint: Nausea Vomiting Diarrhea Time Seen by Provider: 02/17/25 00:24 Source: patient Mode of arrival: ambulatory Limitations: no limitations History of Present Illness ED Provider: Dr. Meehan [facility] narrative: 45-year-old female presented hospital today for nausea and vomiting and diffuse abdominal pain. This started today all of a sudden. Patient stated that she may have eaten something that had upset her stomach. History of hysterectomy in the past. Denies any fever. Denies any vaginal discharge or bleeding. No dysuria. Related Data Previous Rx's ?Medication ?Instructions ?Recorded lidocaine 5 % topical patch 1 patch topical .COMPLEX pain #30 10/03/24 ea methocarbamol 500 mg tablet 500 mg PO BEDTIME #10 tabs 10/03/24 metoclopramide HCl 5 mg tablet 5 mg PO Q8H PRN nausea and 02/17/25 (Reglan) vomiting #14 tabs Allergies Allergy/AdvReac Type Severity Reaction Status Date / Time No Known Allergies Allergy Verified 02/17/25 00:17 Review of Systems Review of Systems: Pertinent review of systems as mentioned in HPI. All other system otherwise negative. [facility] Past Medical History [facility] Narrative: None Social History Social History Smoked in Last 30 Days: No Use of substances other than those prescribed or required for medical reasons: Yes Substance Use Type: Marijuana Advance Directives: No Advance Directives Information Provided: Yes Patient : No Physical Exam ED Exam Exam: General: Appears nauseous Head: Normacephalic, atraumatic ENT: oral mucosa moist, neck supple, no tracheal deviation Cardiovascular: regular rate, regular rhythm, no murmurs, rubbing, gallops Respiratory: CTAB, no wheeze, rales, rhonchi Gastrointestinal: Soft, non distended, diffuse abdominal tenderness on palpation. Skin: Warm and dry Psychiatric: Appropriate mood and thoughts Vital Signs: Vital Signs - 24 hr 02/17/25 00:13 Temperature 97.4 F Pulse Rate 64 Respiratory Rate 20 Blood Pressure 121/66 Pulse Oximetry 100 Oxygen Delivery Method Room Air BMI result Body Mass Index 26.6 Medications Administered Discontinued Medications Generic Name Dose Route Start Last Admin Trade Name Freq PRN Reason Stop Dose Admin Al Hydroxide/Mg Hydroxide 30 ml 02/17/25 00:48 02/17/25 01:01 Magnesium Hydrox/Alum Hydrox 30 Ml Oral.Susp PO 02/17/25 00:49 30 ml ONCE ONE Administration Diphenhydramine HCl 25 mg 02/17/25 02:12 02/17/25 02:21 Diphenhydramine Hcl 50 Mg/Ml Vial IVPUSH 02/17/25 02:13 25 mg ONCE ONE Administration Famotidine 20 mg 02/17/25 00:48 02/17/25 01:01 Famotidine/Pf 20 Mg/2 Ml Vial IVPUSH 02/17/25 00:49 20 mg ONCE ONE Administration Sodium Chloride 1,000 mls @ 999 mls/hr 02/17/25 01:00 02/17/25 02:22 Ns IV 02/17/25 02:00 Infused .Q1H1M KATHY Infusion Lidocaine HCl 15 ml 02/17/25 00:48 02/17/25 01:01 Lidocaine Hcl Viscous 2 % 15 Ml Solution MUCOUS MEM 02/17/25 00:49 15 ml ONCE ONE Administration Metoclopramide HCl 5 mg 02/17/25 00:48 02/17/25 01:01 Metoclopramide Hcl 10 Mg/2 Ml Vial IV 02/17/25 00:49 5 mg ONCE ONE Administration Metoclopramide HCl 5 mg 02/17/25 02:12 02/17/25 02:21 Metoclopramide Hcl 10 Mg/2 Ml Vial IV 02/17/25 02:13 5 mg ONCE ONE Administration Medical Decision Making Medical Decision Making [facility] Narrative: 45-year-old female presented hospital today for evaluation of diffuse abdominal pain with a along with nausea and vomiting. We will plan to give patient some IV Pepcid IV fluid. IV Reglan will be given to the patient. We will plan to challenge patient with a GI cocktail. I suspect patient likely has gastroenteritis. Patient abdomen exam was nonspecific. However she does appear to be very nauseous. Abdominal lab work will be obtained as well. Patient's mother is concerned that patient has been making suicidal remarks. She stated that patient has been very depressed lately. On reassessment the patient stated her nausea and vomiting has improved. She denies any diarrhea. Patient stated that she is endorsing increased stress as she is going through a divorce right now however she is still remains hopeful that she will get through this event. She denies any suicide ideation. She does admit to depression. I did offer consultation with the crisis team. However patient has kindly declined. Patient does admit to chronic marijuana usage. She does feel some nausea at this time. IV Reglan IV Benadryl will be given to the patient for her symptoms. The patient will be signed out to the night doctor at this time. I received sign-out from my colleague Dr. Meehan patient was p.o. challenged and did well. Patient feels much better and ready to be discharged. Differential Diagnosis Differential Diagnoses: The differential diagnosis associated with the presentation includes GERD, Gastritis, Depression, Suicidal ideation Admission/Observation Consideration of admission/observation: Escalation of care including admission/observation considered Lab Data MDM Lab Attestation statement: I reviewed the patient's lab results. 02/17/25 00:41 02/17/25 00:41 Labs: Lab Results 02/17/25 02/17/25 Range/Units 00:41 02:17 WBC 14.5 H (4.8-10.8) X10*3/uL RBC 4.98 (4.20-5.50) X10*6/uL Hgb 15.4 (12.0-16.0) g/dl Hct 45.0 (37.0-47.0) % MCV 90.4 (80.0-98.0) fL MCH 30.9 (27.0-33.0) pg MCHC 34.2 (31.0-35.0) g/dl RDW 13.0 (11.0-16.0) % Plt Count 462 H (160-400) X10*3/uL MPV 9.8 (9.4-12.3) fL Immature Gran % (Auto) 0.3 (0.0-0.4) % Neut % (Auto) 74.5 H (45-73) % Lymph % (Auto) 18.9 L (20-40) % [place] % (Auto) 5.9 (2-11) % Eos % (Auto) 0.2 (0-4) % Baso % (Auto) 0.2 (0-2) % Lymph # (Auto) 2.7 (1.2-4.9) X10*3/uL [place] # (Auto) 0.9 (0.1-1.2) X10*3/uL Eos # (Auto) 0.0 (0.0-0.4) X10*3/uL Baso # (Auto) 0.0 (0.0-0.2) X10*3/uL Abs Immat Gran (auto) 0.04 H (0.00-0.03) X10*3/uL Absolute Neuts (auto) 10.8 H (2.0-8.3) x10*3/uL Absolute Nucleated RBC 0.000 (0.0-0.012) X10*3/uL Nucleated RBC % (auto) 0.0 (0.0-0.2) /100WBC Sodium 143 (135-145) mmol/L Potassium 3.3 (3.3-5.1) mmol/L Chloride 104 (96-108) mmol/L Carbon Dioxide 25 (22-29) mmol/L Anion Gap 17 (12-20) BUN 12 (9-16) mg/dL Creatinine 0.85 (0.5-1.4) mg/dL Estim Creat Clear Calc 88.5 Estimated GFR > 60 Random Glucose 184 H (60-115) mg/dL Calcium 10.4 H (8.4-10.2) mg/dL Total Bilirubin 0.6 (0.0-1.0) mg/dL AST 20 (5-31) U/L ALT 35 H (0-31) U/L Alkaline Phosphatase 79 (39-117) U/L Total Protein 8.2 H (6.5-8.0) g/dL Albumin 5.1 H (3.5-5.0) g/dL Lipase 44 (8-78) U/L Beta HCG, Quant < 2 mIU/mL Salicylates < 5.0 L (15-30) mg/dL Acetaminophen < 3 (<30) mcg/mL Ethyl Alcohol < 10 mg/dL COVID-19 (KIRILL) Negative (Negative) COVID-19 Clin Com Influenza Type A (GADIEL) Negative (Negative) Influenza Type B (GADIEL) Negative (Negative) Influenza A & B Note See Note Critical Care Time Critical Care Time Critical Care Time: Yes Total Critical Care Time: 35 Attestation: I have personally provided critical care time. Time includes review of lab data, radiology results, discussion with consultants, and monitoring for potential decompensation. Intervention performed as documented. Discharge Plan Discharge Clinical Impression: Nausea & vomiting Qualifiers: Vomiting type: unspecified Qualified Code(s): R11.2 - Nausea with vomiting, unspecified Patient Disposition: Home, Self-Care Instructions: Acute Nausea and Vomiting (ED) Additional Instructions: Please follow-up with your primary care physician tomorrow. If you have any worsening or new symptoms, please return to the emergency room or call 911 Prescriptions: New metoclopramide HCl [Reglan] 5 mg tablet 5 mg PO Q8H PRN (Reason: nausea and vomiting) Qty: 14 0RF No Action methocarbamol 500 mg tablet 500 mg PO BEDTIME Qty: 10 0RF lidocaine 5 % adhesive patch,medicated 1 patch topical .COMPLEX Qty: 30 1RF Rx Instructions: 1 patch topically 1 patch daily q 12 hours; leave on most painful area for up to 12 hrs Print Language: Thai
[2025-02-17 00:48] LABS: MANUAL DIFF FLAG NO
[2025-02-17 00:49] LABS: Hematocrit 45.0 % (37.0-47.0); Hemoglobin 15.4 g/dl (12.0-16.0); Imm Gran Abs Auto 0.04 X10*3/uL (0.00-0.03); Imm Gran Pct Auto 0.3 % (0.0-0.4); Lymphocytes Absolute Auto 2.7 X10*3/uL (1.2-4.9); Mean Corpuscular HGB Conc 34.2 g/dl (31.0-35.0); Mean Corpuscular Hemoglobin 30.9 pg (27.0-33.0); Mean Corpuscular Volume 90.4 fL (80.0-98.0); NRBC Abs Auto 0.000 X10*3/uL (0.0-0.012); NRBC Pct Auto 0.0 /100WBC (0.0-0.2); Platelet Count 462 X10*3/uL (160-400); Red Blood Count 4.98 X10*6/uL (4.20-5.50); White Blood Count 14.5 X10*3/uL (4.8-10.8)
[2025-02-17] MEDS: Magnesium Hydrox/Alum Hydrox 30 ML ORAL.SUSP PO (01:01)
[2025-02-17] MEDS: Lidocaine HCl Viscous 2 % 15 ML SOLUTION MUCOUS MEM (01:01)
[2025-02-17 01:09] LABS: Alanine Aminotransferase 35 U/L (0-31); Albumin Level 5.1 g/dL (3.5-5.0); Alkaline Phosphatase 79 U/L (39-117); Anion Gap 17 (12-20); Aspartate Amino Transferase 20 U/L (5-31); Blood Urea Nitrogen 12 mg/dL (9-16); Calcium 10.4 mg/dL (8.4-10.2); Carbon Dioxide 25 mmol/L (22-29); Chloride 104 mmol/L (96-108); Creatinine Clr Calc Pharmacy 88.5; Estimated Glomerular Filt Rate > 60; Lipase 44 U/L (8-78); Potassium 3.3 mmol/L (3.3-5.1); Sodium 143 mmol/L (135-145); Total Protein 8.2 g/dL (6.5-8.0)
--- OUTSIDE RECORDS SUMMARY | 2025-02-17 01:10 | XMS_ITS | Clinical Summary ---
Author Organization [facility] Address [address] [phone] Phone Care Team Providers Care Turn Out Name Role Phone Unknown, Unknown Primary Care Provider Bhavana neal Social History Tobacco Use Types Packs/Day Years Used Date Smoking Tobacco: Never Assessed Education Answer Date Recorded Are you interested in more education? Not on samuel e 08/01/2022 Are you concerned about learning? Not on file 08/01/2022 No 08/01/2022 No 08/01/2022 Digital Access Answer Date Recorded No 09/01/2022 No 09/01/2022 Reliable internet access at home? Not on file 09/01/2022 Device with a working camera? Not on file Comments Unknown Sex and Gender Information Value Date Recorded Sex Assigned at Not on file Legal Sex Female 4:02 PM EST Gender Identity Not on file Sexual Orientation Not on file Plan of Treatment Health Maintenance Due Date Last Done Comments Adult Td,Tdap Booster 1979 LIPID PANEL 1979 DEPRESSION SCREENING 1991 SMOKING Hx and SMOKELESS TOBACCO SCREENING 01/23/1992 HEPATITIS C SCREENING 1997 HIV ONE-TIME SCREENING (18-6 5 YEARS) 1997 PAP SMEAR 01/23/2000 MAMMOGRAM 04/01/2023 04/01/2021, 04/01/2021 COLOGUARD 01/23/2024 COLONOSCOPY 01/23/2024 COLORECTAL CANCER SCREENING 01/23/2024 FIT TEST 01/23/2024 FOBT 01/23/2024 SIGMOIDOSCOPY 01/23/2024 VIRTUAL COLONOSCOPY 01/23/2024 INFLUENZA VACCINE (#1) 2024 COVID-19 VACCINE (2024-2 6 season) 2024 HEPATITIS A VACCINES Aged Out No long er eligible based on patient's age to complete this topic HIB VACCINES Aged Out No longer eligi ble based on patient's age to complete this topic IPV VACCINES Aged Out No longer eligi ble based on patient's age to complete this topic MENINGOCOCCAL VACCINES (ACWY) Aged Out No longer eligible based on patient's age to complete this topic MENINGOCOCCAL VACCINES (B) Aged Out N o longer eligible based on patient's age to complete this topic PNEUMOCOCCAL VACCINES (0-49 years) Aged Out No longer eligible b ased on patient's age to complete this topic Medical Devices Not on file Care Teams Turn Out Relationship Specialty Start Date End Date Unknown, Unknown, PCP - General 04/14/21 Additional Source Comments The information contained in this document represents components of the legal health record. It is not the complete legal health record.[facility]
--- OUTSIDE RECORDS SUMMARY | 2025-02-17 01:10 | XMS_ITS | Clinical Summary ---
Author Organization [address] Address [address] [place] [phone] Phone Care Team Providers Care Camelid Fiber Sorter Name Role Phone Unavailable Primary Care Provider Unavailabl e Allergies No known active allergies Medications hydrOXYzine HCL (ATARAX) 25 mg tablet Take 1 tablet (25 mg total) by mouth every 8 (eight) hours if needed for anxiety for up to 3 days. 12 tablet 5 Active sucralfate (CARAFATE) 1 gram tablet Take 1 tablet (1 g total) by mouth 4 (four) times a day (before meals and nightly). 120 each 11 5 11/15/19 26 Active Additional Information Patient not taking.Reported on 02/11/2025 Active Problems Problem Noted Date Diagnosed Date Acute colitis 11/12/2024 Diarrhea 01/13/2024 Stomach pain 01/13/2024 Constipation 11/23/2023 Generalized postprandial abdominal pain 11/23/19 24 Hiatal hernia with GERD 11/23/2023 Abnormal defecation 07/27/2021 Cystocele with rectocele 07/27/2021 Detrusor instability 07/27/2021 Mixed incontinence urge and stress (male)(female ) 07/27/2021 PREMA (stress urinary incontinence, female) 2021 Urethral sphincter deficiency, intrinsic (ISD) 0 07/27/2021 WAQAS (generalized anxiety disorder) 05/28/2020 Marijuana use 05/28/2020 MDD (major depressive disord er), recurrent episode ([facility] V24) 05/22/2020 Encounters Date Type Department Care Team Description 02/15/2025 10:30 AM EST - 02/15/2025 11:22 AM EST [facility] Emergency [address] [place] [address] Discharge Disposition: Home or Self Care 02/11/2025 12:27 PM EST - 02/11/2025 2:55 PM EST [facility] Emergency [address] [place] [address] Dizziness (Primary Dx); Depression, unspecified depression type; Hot flashes; Sinus arrhythmia Discharge Disposition: Home or Self Care 11/27/2024 11:02 AM EDT - 11/27/2024 11:16 AM EDT [facility] Emergency [address] [place] [phone] Maxime Estevez MD Return to work evaluation (Primary Dx) Discharge Disposition: Home or Self Care from Last 3 Months Surgical History Surgery Date Site/Laterality Comments CHOLECYSTECTOMY PROCEDURE:CHOLECYSTECTOMY TUBAL LIGATION PROCEDURE:TUBAL LIGATION LAPAROSCOPIC HYSTERECTOMY 05/15/2019 N/A PROCEDURE:LAPAROSCOPIC HYSTERECTOMY;COMMENT:Procedur e: TOTAL LAPAROSCOPIC HYSTERECTOMY, BILATERAL SALPINGECTOMY; Surgeon: Marsha Yadav MD; Location: [facility] MAIN OPERATING ROOM; Service: Gynecology; Laterality: N/A; HYSTERECTOMY PROCEDURE:HYSTERECTOMY UPPER GASTROINTESTINAL ENDOSCOPY 12/30/2023 N/A PROCEDURE:UPPER GASTROINTESTINAL ENDOSCOPY;COMMENT:Procedure: UPPER ENDOSCOPY-EGD; Surgeon: Vin Mcclain MD; Location: [facility]; Service: Gastroenterology; Laterality: N/A; with bx COLONOSCOPY 12/30/2023 N/A PROCEDURE:COLONOSCOPY;COMMENT :Procedure: COLONOSCOPY; Surgeon: Vin Mcclain MD; Location: [facility]; Service: Gastroenterology; Laterality: N/A; with cold snare polypectomy HYSTERECTOMY Medical History Medical History Date Comments Endometriosis DX:Endometriosis Depression DX:Depression Headache DX:Headache Decreased vision DX:Decreased vi zehra Chronic constipation DX:Chronic constipation Urinary tract infection DX:Urina ry tract infection Migraine headache DX:Migraine he adache Anxiety DX:Anxiety Eczema DX:Eczema PONV (postoperative nausea and vomiting) DX:PONV (postoperative nausea and vomiting) Overactive bladder DX:Overactive bladder GERD (gastroesophageal reflux disease) DX:GERD (gastroesophageal reflux disease) Heartburn DX:Heartburn Family History Medical History Relation Name Comments Cancer Mother Cancer Sister Breast cancer Neg Hx Colon cancer Neg Hx Endometrial cancer Neg Hx Ovarian cancer Neg Hx Relation Name Status Comments Father Mother Alive Sister Alive Social History Tobacco Use Types Packs/Day Years [...] not to disclose 2024 8:37 PM EDT Obstetrics History Last Filed Vital Signs Vital Sign Reading Time Taken Comments Blood Pressure 104/66 02/11/2025 2:13 PM EST Pulse 61 02/11/2025 2:13 PM EST Temperature 36.6 C (97.9 F) 02/11/2025 2:13 PM EST Respiratory Rate 16 02/11/2025 2:13 PM EST Oxygen Saturation 98% 02/11/2025 2:13 PM EST Inhaled Oxygen Concentration - - Weight 75.8 kg (167 lb) 02/11/2025 12:17 PM EST Height 170.2 cm (5' 7 ) 02/11/2025 12:17 PM EST Body Mass Index 26.16 02/11/2025 12:17 PM EST Plan of Treatment Health Maintenance Due Date Last Done Comments DTaP,Tdap,and Td Vaccines (1 - Tdap) 1998 Hepatitis B Vaccines (1 of 3 - 19+ 3-dose series) 1998 Cervical Cancer Screening: Pap Smear 01/23/2000 HIV Screening 03/03/2022 Hepatitis C Screening 03/03/2022 Depression Screening 04/05/2024 COVID-19 Vaccine ( season) 2024 Influenza Vaccine (#1) 2024 Cholesterol Screening (Lipid Panel) 05/25/2025 05/25/2020, 05/25/2020 Breast Cancer Screening 11/02/2025 11/03/19 24, 11/03/2023, 08/28/2022, Additional history exists Social Influencers of Health Screening 11/14/2025 11/14/2024 Colorectal Cancer Screening: Colonoscopy 12/29/2033 12/30/2023 RSV Immunization Adult Patients (1 - 1-dose 75+ series) 2054 HIB Vaccines Aged Out No longer eligi ble based on patient's age to complete this topic HPV Vaccines Aged Out No longer eligi ble based on patient's age to complete this topic Hepatitis A Vaccines Aged Out No long er eligible based on patient's age to complete this topic IPV Vaccines Aged Out No longer eligi ble based on patient's age to complete this topic MMR Vaccines Aged Out No longer eligi ble based on patient's age to complete this topic Meningococcal ACWY Vaccine Aged Out N o longer eligible based on patient's age to complete this topic Meningococcal B Vaccine Aged Out No l onger eligible based on patient's age to complete this topic Pneumococcal Vaccine: Pediatrics (0 to 5 Years) and At-Risk Patients (6 to 49 Years) Aged Out No longer eligible based on patient's age to complete this topic RSV Immunization Patients Under 20 months Aged Out No longer eligible based on patient's age to complete this topic Varicella Vaccines Aged Out No longer eligible based on patient's age to complete this topic Procedures Procedure Name Priority Date/Time Associated Diagnosis Comments THYROID STIMULATING HORMONE WITH REFLEX TO FREE T4 AND FREE T3 STAT 02/11/2025 1:07 PM EST CBC WITH AUTO DIFFERENTIAL STAT 02/11/2025 1:07 PM EST COMPREHENSIVE METABOLIC PANEL STAT 02/11/2025 1:07 PM EST CBC AND DIFFERENTIAL STAT 02/11/2025 1:07 PM EST LEWIS URINE CULTURE TUBE STAT 02/11/2025 1:03 PM EST URINALYSIS WITH REFLEX MICROSCOPIC AND CULTURE STAT 02/11/2025 1:03 PM EST URINALYSIS WITH REFLEX MICROSCOPIC AND CULTURE STAT 02/11/2025 1:03 PM EST ECG 12-LEAD STAT 02/11/2025 12:52 PM EST MAMMOGRAM SCREENING BILATERAL 3D [place] WITH CAD Routine 11/03/2023 3:13 PM EDT Encounter for screening mammogram for malignant neoplasm of breast LIPID PANEL Routine 05/25/2020 from Last 3 Months or Most Recently Relevant to Health Maintenance Results * Thyroid stimulating hormone with reflex to free t4 and free t3 (TSH Reflex) (02/11/2025 1:07 PM EST) Pathologist [facility] TSH 0.75 0.40 - 4.00 mcIU/mL LAB CHEMISTRY METHOD 02/11/2025 2:37 PM EST [facility] Blood Venous blood specimen / Unknown Venipuncture / Unknown 02/11/2025 1:07 PM EST 02/11/2025 1:14 PM EST us Cydney HENRIQUEZ LAB BLOOD ORDERABLES Fin al Result [facility] [address] [place] [address], [place] [phone] * CBC auto differential (02/11/2025 1:07 PM EST) Pathologist [facility] WBC 8.0 4.8 - 10.8 K/[facility] LAB HEMETOLOGY METHOD 02/11/2025 1:19 PM EST [facility] RBC 4.20 3.80 - 4.80 M/[facility] LAB HEMETOLOGY METHOD 02/11/2025 1:19 PM [facility] Hemoglobin 12.9 11.5 - 16.0 g/dL LAB HEMETOLOGY METHOD 02/11/2025 1:19 PM [facility] Hematocrit 38.8 35.0 - 47.0 % LAB HEMETOLOGY METHOD 02/11/2025 1:19 PM [facility] MCV 91.7 79.0 - 98.0 FL LAB HEMETOLOGY METHOD 02/11/2025 1:19 PM [facility] MCH 30.5 27.0 - 32.0 pcg LAB HEMETOLOGY METHOD 02/11/2025 1:19 PM [facility] MCHC 33.2 32.0 - 37.0 g/dL LAB HEMETOLOGY METHOD 02/11/2025 1:19 PM [facility] RDW 12.9 11.0 - 15.0 % LAB HEMETOLOGY METHOD 02/11/2025 1:19 PM [facility] Platelets 379 130 - 400 K/mcL LAB HEMETOLOGY METHOD 02/11/2025 1:19 PM [facility] MPV 9.8 7.0 - 11.0 FL LAB HEMETOLOGY METHOD 02/11/2025 1:19 PM [facility] NRBC 0.0 <1.0 % LAB HEMETOLOGY METHOD 02/11/2025 1:19 PM [facility] NRBC Absolute 0.00 <0.10 K/mcL LAB HEMETOLOGY METHOD 02/11/2025 1:19 PM [facility] Neutrophils Relative 39.9 % LAB HEMETOLOGY METHOD 02/11/2025 1:19 PM [facility] Lymphocytes Relative 45.2 % LAB HEMETOLOGY METHOD 02/11/2025 1:19 PM [facility] Monocytes Relative 9.7 % LAB HEMETOLOGY METHOD 02/11/2025 1:19 PM [facility] Eosinophils Relative 4.3 % LAB HEMETOLOGY METHOD 02/11/2025 1:19 PM [facility] Basophils Relative 0.6 % LAB HEMETOLOGY METHOD 02/11/2025 1:19 PM [facility] Immature Granulocytes Relative 0.3 % LAB HEMETOLOGY METHOD 02/11/2025 1:19 PM [facility] Neutrophils Absolute 3.18 1.50 - 7.00 K/mcL LAB HEMETOLOGY METHOD 02/11/2025 1:19 PM [facility] Lymphocytes Absolute 3.59 1.00 - 5.00 K/mcL LAB HEMETOLOGY METHOD 02/11/2025 1:19 PM [facility] Monocytes Absolute 0.77 0.20 - 1.00 K/mcL LAB HEMETOLOGY METHOD 02/11/2025 1:19 PM [facility] Eosinophils Absolute 0.34 0.00 - 0.50 K/mcL LAB HEMETOLOGY METHOD 02/11/2025 1:19 PM [facility] Basophils Absolute 0.05 0.00 - 0.20 K/mcL LAB HEMETOLOGY METHOD 02/11/2025 1:19 PM [facility] Immature Granulocytes Absolute 0.02 0.00 - 0.03 K/mcL LAB HEMETOLOGY METHOD 02/11/2025 1:19 PM [facility] Blood Venous blood specimen / Unknown Venipuncture / Unknown 02/11/2025 1:07 PM EST 02/11/2025 1:14 PM EST us Cydney HENRIQUEZ LAB BLOOD ORDERABLES Fin al Result [facility] [address] [place] [address], * Comprehensive Metabolic Panel (CMP) (02/11/2025 1:07 PM EST) Sodium 140 133 - 145 mmol/L LAB CHEMISTRY METHOD 02/11/2025 2:08 PM [facility] Potassium 4.0 3.5 - 5.5 mmol/L LAB CHEMISTRY METHOD 02/11/2025 2:08 PM [facility] Chloride 108 96 - 110 mmol/L LAB CHEMISTRY METHOD 02/11/2025 2:08 PM [facility] CO2 29 21 - 32 mmol/L LAB CHEMISTRY METHOD 02/11/2025 2:08 PM [facility] Anion Gap 3 3 - 11 LAB CHEMISTRY METHOD 02/11/2025 2:08 PM [facility] Glucose 86 70 - 100 mg/dL LAB CHEMISTRY METHOD 02/11/2025 2:08 PM [facility] BUN 11 5 - 25 mg/dL LAB CHEMISTRY METHOD 02/11/2025 2:08 PM [facility] Creatinine 0.64 0.50 - 1.10 mg/dL LAB CHEMISTRY METHOD 02/11/2025 2:08 PM [facility] eGFR 111 >=60 mL/min/1. 73m2 LAB CHEMISTRY METHOD 02/11/2025 2:08 PM [facility] Comment:Calculation based on the Chronic Kidney Disease Epidemiology Collaboration (CKD-EPI) equation refit without adjustment for race. BUN/Creatinine Ratio 17.2 LAB CHEMISTRY METHOD 02/11/2025 2:08 PM [facility] Calcium 9.5 8.5 - 10.5 mg/dL LAB CHEMISTRY METHOD 02/11/2025 2:08 PM [facility] AST (SGOT) 11 10 - 42 unit/L LAB CHEMISTRY METHOD 02/11/2025 2:08 PM [facility] ALT (SGPT) 43 10 - 60 unit/L LAB CHEMISTRY METHOD 02/11/2025 2:08 PM EST [facility] Comment:Results verified by repeat testing Alkaline Phosphatase 71 42 - 121 unit/L LAB CHEMISTRY METHOD 02/11/2025 2:08 PM [facility] Total Protein 6.7 6.0 - 8.0 g/dL LAB CHEMISTRY METHOD 02/11/2025 2:08 PM [facility] Albumin 3.7 3.2 - 5.0 g/dL LAB CHEMISTRY METHOD 02/11/2025 2:08 PM [facility] Total Bilirubin 0.4 0.0 - 1.4 mg/dL LAB CHEMISTRY METHOD 02/11/2025 2:08 PM [facility] Blood Venous blood specimen / Unknown Venipuncture / Unknown 02/11/2025 1:07 PM EST 02/11/2025 1:14 PM EST Cydney HENRIQUEZ LAB BLOOD ORDERABLES Fin al Result [facility] [address] [place] [address], [place] [phone] * (ABNORMAL) Urinalysis with reflex microscopic and culture (02/11/2025 1:03 PM EST) Specific [place] Urine 1.027 1.003 - 1.030 LAB URINALYSIS - AUTOMATED METHOD 02/11/2025 1:18 PM [facility] pH, Urine 6.0 5.0 - 8.0 pH LAB URINALYSIS - AUTOMATED METHOD 02/11/2025 1:18 PM [facility] Leukocytes, Urine Negative Negative LAB URINALYSIS - AUTOMATED METHOD 02/11/2025 1:18 PM [facility] Nitrite, Urine Negative Negative LAB URINALYSIS - AUTOMATED METHOD 02/11/2025 1:18 PM [facility] Protein, Urine Trace <=Trace mg/dL LAB URINALYSIS - AUTOMATED METHOD 02/11/2025 1:18 PM [facility] Glucose, Urine Negative Negative mg/dL LAB URINALYSIS - AUTOMATED METHOD 02/11/2025 1:18 PM [facility] Ketones, Urine Trace(A) Negative mg/dL LAB URINALYSIS - AUTOMATED METHOD 02/11/2025 1:18 PM [facility] Urobilinogen, Urine 1.0 0.2 - 1.0 mg/dL LAB URINALYSIS - AUTOMATED METHOD 02/11/2025 1:18 PM [facility] Bilirubin, Urine Negative Negative LAB URINALYSIS - AUTOMATED METHOD 02/11/2025 1:18 PM [facility] Blood, Urine Negative Negative LAB URINALYSIS - AUTOMATED METHOD 02/11/2025 1:18 PM [facility] Urine Urine specimen obtained by clean catch procedure / Unknown Non-blood Collection / Unknown 02/11/2025 1:03 PM EST 02/11/2025 1:14 PM EST Cydney HENRIQUEZ LAB URINE ORDERABLES Fin al Result Performing Organization Address City/[facility]/ZIP Co de Phone Number [facility] [address] [place] [address], [place] [phone] * Lewis urine culture tube (02/11/2025 1:03 PM EST) Extra Tube Hold for add-ons. 02/11/2025 3:01 PM EST [facility] Comment:Auto resulted. Urine Urine specimen obtained by clean catch procedure / Unknown Non-blood Collection / Unknown 02/11/2025 1:03 PM EST 02/11/2025 1:14 PM EST Cydney HENRIQUEZ LAB URINE ORDERABLES Fin al Result Performing Organization Address City/[facility]/ZIP Co de Phone Number [facility] [address] [place] [address], [place] [phone] * ECG 12 lead (02/11/2025 12:52 PM EST) Ventricular Rate ECG 66 BPM GEMUSE Atrial Rate 66 BPM GEMUSE P-R Interval 132 ms GEMUSE QRS Duration 80 ms GEMUSE Q-T Interval 380 ms GEMUSE QTc 398 ms GEMUSE P Wave [place] -5 degrees GEMUSE R [place] -7 degrees GEMUSE T [place] -2 degrees GEMUSE ECG Interpretation Normal sinus rhythm with sinus arrhythmia Inferior infarct , age undetermined Abnormal ECG When compared with ECG of 12-NOV-2024 11:48, Inferior infarct is now Present T wave inversion now evident in Inferior leads Confirmed by SYLVESTER MCGOVERN ([id number]) on 02/11/2025 5:12:07 PM GEMUSE 02/11/2025 12:5 2 PM EST 02/11/2025 5:12 PM EST Cydney HENRIQUEZ ECG ORDERABLES Final Re sult GEMUSE * MAMMOGRAM SCREENING BILATERAL 3D [place] WITH CAD (11/03/2023 3:13 PM EDT) Anatomical Region Laterality Modality Mammography 10/21/2023 10:0 5 AM EDT Narrative 11/03/2023 3:29 PM EDT This is a summary report. The complete report is available in the patient's medical record. If you cannot access the medical record, please contact the sending organization for a detailed fax or copy. EXAM PERFORMED: MAMMOGRAM SCREENING BILATERAL 3D [place] WITH CAD EXAM HISTORY: Routine screening. No palpable abnormality. COMPARISON: Mammograms from 2022, 2020, 2019 TECHNIQUE: Full field digital mammography synthesized (2-D) and Tomosynthesis (3-D) was performed using standard CC and MLO projections. FINDINGS: No suspicious masses, groups of microcalcification or areas of architectural distortion are identified. Stable parenchymal pattern with typically benign asymmetries. No axillary lymphadenopathy. BREAST DENSITY: Category B. There are scattered fibroglandular densities (approximately 25-50% glandular). IMPRESSION: 1. No mammographic evidence of malignancy. Stable exam. 2. Scattered fibroglandular densities The results of this examination have been communicated to the patient through a lay letter in accordance with the Mammography Quality Standards Act. BI-RADS Category 2: Benign RECOMMENDATION: Routine annual screening mammography is recommended in 12 months SESSION: This study was performed and interpreted in separate sessions. Report reviewed and signed by : Dr. Irene Flores MD on 11/03/2023 3:29 PM. Workstation Name - [id number] Procedure Note Irene Flores MD - 01/19/2024 This is a summary report. The complete report is available in thepatient's medical record. If you cannot access the medical record, pleasecontact the sending organization for a detailed fax or copy. EXAM PERFORMED: MAMMOGRAM SCREENING BILATERAL 3D [place] WITH CAD EXAM HISTORY: Routine screening. No palpable abnormality. COMPARISON: Mammograms from 2022, 2020, 2019 TECHNIQUE: Full field digital mammography synthesized (2-D) andTomosynthesis (3- D) was performed using standard CC and MLO projections. FINDINGS: No suspicious masses, groups of microcalcification or areas ofarchitectural distortion are identified. Stable parenchymal pattern withtypically benign asymmetries. No axillary lymphadenopathy. BREAST DENSITY: Category B. There are scattered fibroglandular densities(approximately 25-50% glandular). IMPRESSION: 1. No mammographic evidence of malignancy. Stable exam. 2. Scattered fibroglandular densities The results of this examination have been communicated to the patientthrough a lay letter in accordance with the Mammography Quality StandardsAct. BI-RADS Category 2: Benign RECOMMENDATION: Routine annual screening mammography is recommended in 12months SESSION: This study was performed and interpreted in separate sessions. Report reviewed and signed by : Dr. Irene Flores MD on 11/03/2023 3:29PM. Workstation Name - [id number] Elizabeth Roca NP IMG BI PROCEDURES Final Resu lt * (ABNORMAL) Lipid panel (05/25/2020) Triglycerides 60 0 - 150 mg/dL Cholesterol 205(A) 0 - 200 mg/dL HDL 42 35 - 88 mg/dL LDL Cholesterol 151(A) 50 - 130 mg/dL Blood Venous blood specimen / Unknown us Historical Provider LAB BLOOD ORDERABLES Belgica schmidt Result from Last 3 Months or Most Recently Relevant to Health Maintenance Additional Health Concerns Infection Onset Date Last Indicated Salmonella 11/12/2024 11/12/2024 Insurance [place] Advance Directives * Full Code - Default (Latest Code Status on File) Date Activated Date Inactivated Comments 11/12/2024 2:15 PM 11/14/2024 4:03 PM This is orde r is used when code status has not been discussed with the patient, or code status is otherwise unknown/unconfirmed To update the patient's code status, place a code status order. Do not modify or discontinue any currently active code status orders.
--- OUTSIDE RECORDS SUMMARY | 2025-02-17 01:11 | XMS_ITS | Clinical Summary ---
Author Organization [facility] Address [address] [place] [id number] Care Team Providers Care Chemical Economist Name Role Phone Pcp, [facility] Primary Care Provider [phone] Allergies No known active allergies Medications Medication Sig Dispensed Refills Start Date End Date Status folic acid (FOLVITE) tablet 1 mgIndications:supplem ent Take 1 tablet (1 mg total) by mouth daily. 30 tablet 0 05/28/2020 Active polyethylene glycol (MiraLax) 17 GM/SCOOP powderIndications:Con stipation, unspecified constipation type Take 17 g by mouth every night at bedtime. Mixed with 8 oz fluid 510 g 5 11/23/2023 Active naproxen (NAPROSYN) 500 MG tablet Take 1 tablet (500 mg total) by mouth 2 (two) times a day with meals. 20 tablet 0 12/21/2023 Active methocarbamol (ROBAXIN) 750 MG tablet Take 1 tablet (750 mg total) by mouth 3 (three) times a day. 15 tablet 0 12/21/2023 Active Lidocaine 4 % Place 1 patch onto the skin daily. Remove & Discard patch within 12 hours or as directed by MD 30 patch 0 12/21/2023 Active pantoprazole (Protonix) 40 MG tabletIndications:Sto mach pain,Hiatal hernia with GERD Take 1 tablet (40 mg total) by mouth every morning on an empty stomach. 30 tablet 5 01/13/2024 Active colestipol (COLESTID) 1 g tabletIndications:Sto mach pain,Diarrhea, unspecified type Take 1 tablet (1 g total) by mouth 2 (two) times a day. 120 tablet 1 01/13/2024 Active Active Problems Problem Noted Date Diagnosed Date Stomach pain 01/13/2024 Diarrhea 01/13/2024 Colon cancer screening 11/23/2023 Constipation 11/23/2023 Generalized postprandial abdominal pain 11/23/19 Hiatal hernia with GERD 11/23/2023 Family history of colon cancer 11/23/2023 Detrusor instability 07/27/2021 Urethral sphincter deficiency, intrinsic (ISD) 0 07/27/2021 PREMA (stress urinary incontinence, female) 2021 Cystocele with rectocele 07/27/2021 Mixed incontinence urge and stress (male)(female ) 07/27/2021 Abnormal defecation 07/27/2021 WAQAS (generalized anxiety disorder) 05/28/2020 Marijuana use 05/28/2020 MDD (major depressive disorder), recurrent episo de 05/22/2020 Family History Medical History Relation Name Comments Cancer Mother Cancer Sister Breast cancer Neg Hx Colon cancer Neg Hx Endometrial cancer Neg Hx Ovarian cancer Neg Hx Relation Name Status Comments Father Mother Alive Sister Alive Social History Tobacco Use Types Packs/Day Years Used Date Smoking Tobacco: Never Smokeless Tobacco: Never Tobacco Cessation:Counseling Given: Not Answered Alcohol Use Standard Drinks/Week Comments Yes 0 (1 standard drink = 0.6 oz pur e alcohol) Occassional Sex and Gender Information Value Date Recorded Sex Assigned at Female 04/12/2019 11:20 AM EST Gender Identity Female 04/12/2019 11:20 AM EST Sexual Orientation Straight 05/22/2020 2: 35 PM EST Job Start Date Occupation Industry Not on file Not on file Not on file Last Filed Vital Signs Vital Sign Reading Time Taken Comments Blood Pressure 132/78 01/13/2024 1:49 PM EDT Pulse 55 12/30/2023 1:26 PM EDT Temperature 36.7 C (98 F) 12/30/2023 12:35 PM EDT Respiratory Rate 20 12/30/2023 1:26 PM EDT Oxygen Saturation 99% 12/30/2023 1:26 PM EDT Inhaled Oxygen Concentration - - Weight 85.3 kg (188 lb) 01/13/2024 1:49 PM EDT Height 167.6 cm (5' 6 ) 01/13/2024 1:49 PM EDT Body Mass Index 30.34 01/13/2024 1:49 PM EDT Plan of Treatment Health Maintenance Due Date Last Done Comments Hepatitis B Vaccines (1 of 3 - 3-dose series) 1979 Hepatitis C Screening 1979 COVID-19 Vaccine (#1) 1979 Pneumococcal Vaccine (1 of 2 - PCV) 1985 Depression Screening 1991 Preventative Health Evaluation 1997 Tobacco Cessation Counseling 1997 DTap / Tdap / Td (1 - Tdap) 1998 Cervical Cancer Screening (Pap Smear) 01/23/2000 Influenza Vaccine (#1) 2024 BMI Counseling 01/12/2025 01/13/2024, 11/23/2023 Colon Cancer Screening (Colonoscopy) 12/29/2033 12/30/2023 RSV Ped < 20 months Aged Out No longe r eligible based on patient's age to complete this topic Advance Directives For more information, please contact: [phone] Latest Code Status on File Code Status Date Activated Date Inactivated Comments Full Code 05/22/2020 4:20 PM 05/28/2020 5:41 PM This code status was ascertained in the following way: per unit protocol. Code Status History Code Status Date Activated Date Inactivated Comments Full Code 05/15/2019 1:25 PM 05/16/2019 6:51 PM This code status was ascertained in the following way: discussion with patient . Care Teams Chemical Economist Relationship Specialty Start Date End Date Pcp, MD Bettye [address] [place] [phone] PCP - General Fax Machine Operator 06/04/14
--- OUTSIDE RECORDS SUMMARY | 2025-02-17 01:11 | XMS_ITS | Clinical Summary ---
Author Organization [facility] Address [address] [place] [address] Care Team Providers Care Bag Filler Name Role Phone Unavailable Primary Care Provider Unavailabl e Allergies No known active allergies Medications butalbital-acet aminophen-caffe ine (FioriCET, ESGIC) 50-325-40 mg tablet Take 1-2 tablets by mouth every 4 (four) hours as needed for pain. Max: 6 capsules/tab lets in 24 hours 10 tablet 12/05/2016 Active Social History Tobacco Use Types Packs/Day Years Used Date Smoking Tobacco: Every Day Smokeless Tobacco: Current Comments No Sex and Gender Information Value Date Recorded Sex Assigned at Not on file Legal Sex Female 4:56 PM EDT Gender Identity Not on file Sexual Orientation Not on file Last Filed Vital Signs Vital Sign Reading Time Taken Comments Blood Pressure 115/55 02/15/2020 8:29 AM EST Pulse 87 02/15/2020 8:29 AM EST Temperature 35.6 C (96 F) 02/15/2020 8:29 AM EST Respiratory Rate 18 02/15/2020 8:29 AM EST Oxygen Saturation 99% 02/15/2020 8:29 AM EST Inhaled Oxygen Concentration - - Weight 81.6 kg (180 lb) 12/05/2016 11:27 AM EDT Height 170.2 cm (5' 7 ) 12/05/2016 11:27 AM EDT Body Mass Index 28.19 12/05/2016 11:27 AM EDT Plan of Treatment Health Maintenance Due Date Last Done Comments Hepatitis C Virus Screening 1979 HIV Screening 01/23/1992 DTaP/Tdap/Td Vaccines (1 - Tdap) 1998 Hepatitis B Vaccines (1 of 3 - 19+ 3-dose series) 1998 Pap Smear (Ages 21-65) 01/23/2000 Mammogram 11/23/2021 11/24/2019 Colonoscopy 01/23/2024 Influenza Vaccine 11/03/2024 COVID-19 Vaccine (1 - 2023-2 5 season) 2024 HPV Vaccines (No Doses Required) Completed Pneumococcal Vaccine: Pediat matthew (0-5 Years) and At-Risk Patients (6 to 49 Years) Aged Out No longer eligible b ased on patient's age to complete this topic Insurance [facility]
[2025-02-17 01:22] LABS: COVID-19 Test Negative (Negative)
[2025-02-17 01:23] LABS: Influenza B2 Negative (Negative)
[2025-02-17 01:41] LABS: IDNOW Serial# 55D5AD1C
[2025-02-17 01:42] LABS: IDNOW Serial# 58CA691E
[2025-02-17 02:46] LABS: Acetaminophen LAB < 3 mcg/mL (<30); Salicylate < 5.0 mg/dL (15-30)
[2025-02-17 03:33] VITALS: BP 107/69; PULSE 80; RESP 16; TEMP 36.8; O2SAT 100
[2025-02-17 04:12] VITALS: BP 107/69; PULSE 80; RESP 16; TEMP 36.8; O2SAT 100
== END 2025-02-17 04:14 | disposition home or self-care (01) ==
PROVIDERS: Student in an Organized Health Care Education/Training Program; Emergency Provider Emergency Medicine
DX: R11.2 Nausea with vomiting, unspecified (principal); R10.9 Unspecified abdominal pain; R19.7 Diarrhea, unspecified; Z03.818 Encounter for observation for suspected exposure to other biological agents ruled out
CPT/HCPCS: 80053; 80143; 80179; 80307; 83690; 84702; 85025; 87502; 87635; 96361; 96374; 96375; 96376; 99284; J1200; J1308; J2765